=== PATIENT | female | born 1990 | race African-American/Black ===

== ENCOUNTER 2016-12-10 16:01 | Emergency (ER) | payer BC, MEDICAID ==
[~2016-12-10] VITALS: Ht 160 cm; Wt 46.7 kg
[2016-12-10] MEDS ORDERED: ACETAMINOPHEN 500 MG TABLET PO ONE (17:00)
--- NOTE | 2016-12-10 17:11 | PHYS DOC ---
Past Medical History Past Medical History: No Pertinent History Past Surgical History: Appendectomy Additional Past Surgical Histo: cyst removed under L arm Alcohol Use: None Drug Use: None Adult General Chief Complaint Chief Complaint: ABDOMINAL PAIN IN HPI HPI Patient is a 26 year old female who presents with pelvic pain. Patient reports that she has been having a sharp pain for the past three weeks. No clear inciting or mitigating factors. She has not taken anything for pain at home. Only other symptom in nausea. No vaginal bleeding or discharge, no dysuria. Patient reports that she took a test at home on Tue that was positive. LMP 10/03/16. She is now with one prior miscarriage. She is taking a vitamin. Review of Systems Review of Systems Constitutional: Denies fever or chills Eyes: Denies change in visual acuity or eye pain HENT: Denies nasal congestion or sore throat Respiratory: Denies cough or shortness of breath Cardiovascular: Denies chest pain GI: Pelvic pain, nausea. Denies vomiting, bloody stools or diarrhea : Denies vaginal bleeding/discharge, dysuria or hematuria Musculoskeletal: Denies back pain or joint pain Integument: Denies rash or skin lesions Neurologic: Denies headache, focal weakness or sensory changes Current Medications Current Medications Current Medications Medications (Trade) Dose Ordered Sig/Flynn Start Time Stop Time Status Last Admin Dose Admin Acetaminophen 1000 mg 1,000 mg 1X ONCE 12/10/16 17:00 12/10/16 17:01 DC 12/10/16 19:30 1,000 MG Ceftriaxone Sodium (Rocephin 1gm Ivpb For Omni) 50 ml @ 100 mls/hr 1X ONCE 12/10/16 19:30 12/10/16 19:59 DC 12/10/16 19:30 100 MLS/HR Allergies Allergies Allergies Coded Allergies Type Severity Reaction Last Updated Verified shellfish derived Allergy Severe throat itching and/soa/vomiting 06/03/15 Yes Physical Exam Physical Exam Constitutional: Well developed, well nourished, no acute distress, non-toxic appearance HENT: Normocephalic, atraumatic, bilateral external ears normal Eyes: EOMI, conjunctiva normal, no discharge Neck: Normal range of motion, no stridor Cardiovascular: Heart rate normal, regular rhythm, no murmur Lungs & Thorax: Bilateral breath sounds clear to auscultation Abdomen: Bowel sounds normal, soft, non-distended, no TTP Pelvic: No blood in vault, no significant discharge, no CMT, no adnexal tenderness Skin: Warm, dry, no erythema, no rash Extremities: No obvious deformity, no edema Neurologic: Alert and oriented X 3, no gross deficits noted Current Patient Data Vital Signs Vital Signs Date Time Temp Pulse Resp B/P Pulse Ox O2 Delivery O2 Flow Rate FiO2 12/10/16 20:53 78 20 98/65 98 Room Air 12/10/16 16:06 98.7 98.7 Lab Values Laboratory Tests Test 12/10/16 16:25 12/10/16 19:15 Urine Collection Type Unknown Urine Color Yellow Urine Clarity Clear Urine pH 6.5 Urine Specific [place] 1.025 Urine Protein Negativemg/dL (NEG-TRACE) Urine Glucose (UA) Negativemg/dL (NEG) Urine Ketones (Stick) >=80mg/dL (NEG) Urine Blood Moderate (NEG) Urine Nitrite Negative (NEG) Urine Bilirubin Negative (NEG) Urine Urobilinogen Dipstick 0.2mg/dL (0.2 mg/dL) Urine Leukocyte Esterase Small (NEG) Urine RBC 0/HPF (0-2) Urine WBC 11-20/HPF (0-4) Urine Squamous Epithelial Cells Mod/LPF Urine Bacteria Moderate/HPF (0-FEW) Urine Mucus Slight/LPF White Blood Count 4.3x10^3/uL (4.0-11.0) Red Blood Count 4.55x10^6/uL (3.50-5.40) Hemoglobin 13.4g/dL (12.0-15.5) Hematocrit 40.5% (36.0-47.0) Mean Corpuscular Volume 89fL (79-100) Mean Corpuscular Hemoglobin 30pg (25-35) Mean Corpuscular Hemoglobin Concent 33g/dL (31-37) Red Cell Distribution Width 15.0% (11.5-14.5) H Platelet Count 217x10^3/uL (140-400) Neutrophils (%) (Auto) 61% (31-73) Lymphocytes (%) (Auto) 25% (24-48) Monocytes (%) (Auto) 11% (0-9) H Eosinophils (%) (Auto) 2% (0-3) Basophils (%) (Auto) 1% (0-3) Neutrophils # (Auto) 2.6x10^3uL (1.8-7.7) Lymphocytes # (Auto) 1.1x10^3/uL (1.0-4.8) Monocytes # (Auto) 0.5x10^3/uL (0.0-1.1) Eosinophils # (Auto) 0.1x10^3/uL (0.0-0.7) Basophils # (Auto) 0.1x10^3/uL (0.0-0.2) Maternal Serum HCG Beta Subunit 2144mIU/mL (0-6) H Sodium Level 139mmol/L (136-145) Potassium Level 3.7mmol/L (3.5-5.1) Chloride Level 105mmol/L (98-107) Carbon Dioxide Level 27mmol/L (21-32) Anion Gap 7 (6-14) Blood Urea Nitrogen 17mg/dL (7-20) Creatinine 0.6mg/dL (0.6-1.0) Estimated GFR (Cockcroft-Gault) 145.1 BUN/Creatinine Ratio 28 (6-20) H Glucose Level 77mg/dL (70-99) Calcium Level 9.3mg/dL (8.5-10.1) Total Bilirubin 0.4mg/dL (0.2-1.0) Aspartate Amino Transferase (AST) 12U/L (15-37) L Alanine Aminotransferase (ALT) 15U/L (14-59) Alkaline Phosphatase 46U/L (46-116) Total Protein 7.5g/dL (6.4-8.2) Albumin 3.6g/dL (3.4-5.0) Albumin/Globulin Ratio 0.9 (1.0-1.7) L Laboratory Tests 12/10/16 19:15 Laboratory Tests 12/10/16 19:15 Microbiology 12/10/16 Wet Prep - Final, Complete Microbiology 12/10/16 Wet Prep - Final, Complete EKG EKG [] Radiology/Procedures Radiology/Procedures Pelvic US: IMPRESSION No evidence . An early or a blighted ovum or miscarriage are possible. Recommend correlation with serial quantitative beta HCG. If the continues a short-term followup ultrasound must be performed in order to document an intrauterine and thereby exclude possible ectopic . Course & Med Decision Making Course & Med Decision Making Pertinent Labs and Imaging studies reviewed. (See chart for details) Patient is 26-year-old female who presents with pelvic pain and setting of . Will check UA, serum hCG, pelvic ultrasound, pelvic swabs. Dose of Tylenol ordered for pain control. Blood work unremarkable. UA indicative of UTI , dose of Rocephin ordered. Ultrasound results as above. Given that beta hCG is greater than 2100, I called and spoke with Dr. Menjivar (communications supervisor ObGyn); likely early , ok to send home with outpatient follow up. Discussed results with patient, who is feeling better at this time. Discussed the need to follow- up with her [employer] early next week, or return to the Emergency Department if her symptoms get worse. Will discharge with prescription for Macrobid. Dragon Disclaimer Dragon Disclaimer This electronic medical record was generated, in whole or in part, using a voice recognition dictation system. Departure Departure Impression: Primary Impression: Abdominal pain affecting Additional Impression: UTI (urinary tract infection) Disposition: 01 HOME, SELF-CARE Condition: STABLE Referrals: UNKNOWN PCP NAME (PCP) Patient Instructions: Abdominal Pain During , Urinary Tract Infection Additional Instructions: Thank you for allowing us to provide care today in the Emergency Department. Take the provided medication as directed. Your ultrasound did not show a at this time. It is likely that you have an early that is too small to show up at this time. It is important for you to follow up to be re-evaluated in the near future. Schedule a follow up appointment with your ObGyn as soon as possible. Return promptly to the Emergency Department if you develop any new or concerning symptoms, such as worsening pain or vaginal bleeding. Scripts Nitrofurantoin Monohyd/M-Cryst (Macrobid 100 Mg Capsule)100 Mg Capsule1 Cap PO BID #14 CAP Prov:KRISTY MIN MD 12/10/16 Problem Qualifiers KRISTY MIN MD Dec 10, 2016 17:11
[2016-12-10 17:12] LABS: BILIRUBIN,URINE NEGATIVE (NEG); GLUCOSE,URINE NEGATIVE (NEG); NITRITE,URINE NEGATIVE (NEG); PH,URINE 6.5; PROTEIN,URINE NEGATIVE (NEG-TRACE); UROBILINOGEN,URINE 0.2 mg/dL (0.2 mg/dL)
[2016-12-10 17:22] LABS: RBC,URINE 0 /HPF (0-2)
[2016-12-10 17:23] LABS: BACTERIA,URINE MODERATE /HPF (0-FEW); SQUAMOUS EPITHELIAL CELL,UR MOD /LPF
--- NOTE | 2016-12-10 18:25 | RAD ---
PROCEDURE Ob ultrasound less than 14 weeks HISTORY Pelvic pain TECHNIQUE Sonographic examination of the was performed by transabdominal technique and multiple static images were obtained FINDINGS The left ovary appears normal with normal blood flow measures 3.2 x 2.4 by 2.6 centimeters. The right ovary appears normal with normal blood flow and measures 3.2 x 2.1 x 3.0 centimeters. The maternal cervix measures 2.5 centimeters in length and contains a sliver of fluid. The uterus measures 8.4 x 3.7 by 5.2 centimeters. The endometrium of the uterus appears normal and measures 7 millimeters in thickness. IMPRESSION No evidence . An early or a blighted ovum or miscarriage are possible. Recommend correlation with serial quantitative beta HCG. If the continues a short-term followup ultrasound must be performed in order to document an intrauterine and thereby exclude possible ectopic . Electronically signed by: Caleb العراقي MD (Dec 10, 2016 18:24:24)
[2016-12-10] MEDS ORDERED: CEFTRIAXONE 1GM IVPB FOR OMNI 50 ML IV ONE (19:30)
[2016-12-10 19:36] LABS: BASO # 0.1 x10^3/uL (0.0-0.2); BASO % 1 % (0-3); EOS % 2 % (0-3); HEMATOCRIT 40.5 % (36.0-47.0); HEMOGLOBIN 13.4 g/dL (12.0-15.5); LYMPH # 1.1 x10^3/uL (1.0-4.8); LYMPH % 25 % (24-48); MEAN CORPUSCULAR HEMOGLOBIN 30 pg (25-35); MEAN CORPUSCULAR HGB CONC 33 g/dL (31-37); MEAN CORPUSCULAR VOLUME 89 fL (79-100); MONO % 11 % (0-9); NEUT % 61 % (31-73); PLATELET COUNT 217 x10^3/uL (140-400); RED BLOOD COUNT 4.55 x10^6/uL (3.50-5.40); WHITE BLOOD COUNT 4.3 x10^3/uL (4.0-11.0)
[2016-12-10 19:47] LABS: CALCIUM 9.3 mg/dL (8.5-10.1); CREATININE 0.6 mg/dL (0.6-1.0); GFR 145.1; POTASSIUM 3.7 mmol/L (3.5-5.1)
[2016-12-10 19:53] LABS: ALBUMIN 3.6 g/dL (3.4-5.0); ALBUMIN/GLOBULIN RATIO 0.9 (1.0-1.7); TOTAL BILIRUBIN 0.4 mg/dL (0.2-1.0); TOTAL PROTEIN 7.5 g/dL (6.4-8.2)
[2016-12-10] MEDS ORDERED: NITR100C62 PO (20:46)
[2016-12-10 20:53] VITALS: BP 98/65
--- NOTE | 2016-12-13 17:14 | VNOTE ---
CALL BACK NOTE CALL BACK Microbiology 12/10/16 Wet Prep - Final, Complete 12/10/16 Urine Culture - Final, Complete 12/10/16 Urine Culture Result 1 (SHAHRIAR) - Final, Complete 12/10/16 Antimicrobic Susceptibility - Final, Complete Urine culture reports back. Patient was positive for proteus mirabilis she was placed on macrobid. Sensitivity results shows that this infection is resistant against Macrobid. Attempted to contact patient at [phone] with the number being disconnected. Patient will be provided with a certified letter in regards to urine culture. JALEN CARDOZA NP Dec 13, 2016 17:14
== END 2016-12-10 20:54 | disposition home or self-care (01) ==
LOC: ER 16:01
DX: R10.9 Unspecified abdominal pain (principal); N39.0 Urinary tract infection, site not specified; Z90.49 Acquired absence of other specified parts of digestive tract; Z91.013 Allergy to seafood
CPT/HCPCS: 76801; 80053; 81001; 84702; 85027; 87086; 96365; 99285; J0690; Q0111; 36415; 81025; 87491; 87591

== ENCOUNTER 2016-12-15 21:32 | Emergency (ER) | payer BC ==
[~2016-12-15] VITALS: Ht 182.9 cm; Wt 46.7 kg
[~2016-12-15 21:32] MED LIST: NITR100C62 PO
[2016-12-15 22:07] VITALS: BP 127/66
[2016-12-15] MEDS ORDERED: ACETAMINOPHEN 500 MG TABLET PO ONE (22:30)
[2016-12-15 22:40] LABS: OBC FLU VALID
--- NOTE | 2016-12-15 22:45 | PHYS DOC ---
Past Medical History Past Medical History: No Pertinent History Past Surgical History: Appendectomy Additional Past Surgical Histo: cyst removed under L arm Alcohol Use: None Drug Use: None Adult General Chief Complaint Chief Complaint: FEVER HPI HPI 26-year-old otherwise healthy female presents with a 2 day history of upper respiratory type symptoms and low-grade fever. She denies any chills or sweats. She has had a little bit of a dry cough. She complains of body aches as well. Over the last 2 days she's had a little bit of a decreased appetite. [] Review of Systems Review of Systems Constitutional: Denies fever or chills [] Eyes: Denies change in visual acuity, redness, or eye pain [] HENT: Denies nasal congestion or sore throat [] Respiratory: Denies cough or shortness of breath [] Cardiovascular: No additional information not addressed in HPI [] GI: Denies abdominal pain, nausea, vomiting, bloody stools or diarrhea [] : Denies dysuria or hematuria [] Musculoskeletal: Denies back pain or joint pain [] Integument: Denies rash or skin lesions [] Neurologic: Denies headache, focal weakness or sensory changes [] Endocrine: Denies polyuria or polydipsia [] Current Medications Current Medications Current Medications Medications (Trade) Dose Ordered Sig/Flynn Start Time Stop Time Status Last Admin Dose Admin Acetaminophen (Tylenol) 1,000 mg 1X ONCE 12/15/16 22:30 12/15/16 22:31 DC 12/15/16 22:21 1,000 MG Allergies Allergies Allergies Coded Allergies Type Severity Reaction Last Updated Verified shellfish derived Allergy Severe throat itching and/soa/vomiting 06/03/15 Yes Physical Exam Physical Exam Constitutional: Well developed, well nourished, no acute distress, non-toxic appearance. [] HENT: Normocephalic, atraumatic, bilateral external ears normal, oropharynx moist, no oral exudates, nasal congestion with clear rhinorrhea. [] Eyes: PERRLA, EOMI, mildly injected conjunctiva, no discharge. [] Neck: Normal range of motion, no tenderness, supple, no stridor. [] Cardiovascular:Heart rate regular rhythm, no murmur [] Lungs & Thorax: Bilateral breath sounds clear to auscultation [] Abdomen: Bowel sounds normal, soft, no tenderness, no masses, no pulsatile masses. [] Skin: Warm, dry, no erythema, no rash. [] Back: No tenderness, no CVA tenderness. [] Extremities: No tenderness, no cyanosis, no clubbing, ROM intact, no edema. [] Neurologic: Alert and oriented X 3, normal motor function, normal sensory function, no focal deficits noted. [] Psychologic: Affect normal, judgement normal, mood normal. [] Current Patient Data Vital Signs Vital Signs Date Time Temp Pulse Resp B/P Pulse Ox O2 Delivery O2 Flow Rate FiO2 12/15/16 22:07 99.1 108 18 127/66 100 Room Air 99.1 Lab Values Laboratory Tests Test 12/15/16 22:15 Influenza Type A Antigen Negative (NEGATIVE) Influenza Type B Antigen Negative (NEGATIVE) EKG EKG [] Radiology/Procedures Radiology/Procedures [] Course & Med Decision Making Course & Med Decision Making Pertinent Labs and Imaging studies reviewed. (See chart for details) [] Dragon Disclaimer Dragon Disclaimer This electronic medical record was generated, in whole or in part, using a voice recognition dictation system. Departure Departure Impression: Primary Impression: Upper respiratory infection Disposition: HOME, SELF-CARE Condition: STABLE Referrals: NO PCP (PCP) Patient Instructions: Viral Syndrome Additional Instructions: Drink plenty of fluids over the course of the next 2-3 days. Tylenol or Motrin for fever and body aches. Return immediately to the emergency department with any new or concerning symptoms Problem Qualifiers Primary Impression: Upper respiratory infection URI type: unspecified viral URI Qualified Code: J06.9 - Acute upper respiratory infection, unspecified LUANNE WARD DO Dec 15, 2016 22:45
== END 2016-12-15 22:49 | disposition home or self-care (01) ==
LOC: ER 21:32
DX: J06.9 Acute upper respiratory infection, unspecified (principal); Z91.013 Allergy to seafood
CPT/HCPCS: 87804; 99284

== ENCOUNTER 2016-12-17 05:47 | Emergency (ER) | payer BC ==
[~2016-12-17] VITALS: Ht 160 cm; Wt 47.6 kg
--- NOTE | 2016-12-17 06:38 | ED.ADGEN ---
Past Medical History Past Medical History: No Pertinent History Past Surgical History: Appendectomy Additional Past Surgical Histo: cyst removed under L arm Alcohol Use: None Drug Use: None Adult General Chief Complaint Chief Complaint: Congestion HPI HPI Patient is a 26 year old woman, , history of 1 previous miscarriage, 11 weeks by dates, who presents to the emergency department with a complaint of sore throat, rhinorrhea, body aches, headache, subjective fevers and chills, and abdominal pain. Patient states that she was seen on Tuesday and was told that she had upper respiratory infection. She has not yet been seen by [facility] for this , she is taking vitamins. She took one dose of Tylenol left-sided 10:30. Has not taken any other medications since that time. Denies any other medical history medical problems. States she is coughing , and "vomiting up" mucus. Denies any other emesis. Denies any urinary complaints. Denies any discharge or drainage from the vagina aside from her typical clear vaginal discharge. Denies any possibility of STI exposures other concerning findings. No injuries to the abdomen. No back pain. No bleeding or gush of fluid. Patient states she had an ultrasound done on Tuesday that did not show a fetus in the uterus. Review of Systems Review of Systems Constitutional: Denies fever or chills. [] Eyes: Denies change in visual acuity. [] HENT: Nasal congestion, sore throat, cough productive of mucus. Respiratory: Cough, no shortness of breath. Cardiovascular: Denies chest pain or edema. [] GI: Lower quadrant abdominal pain, no vomiting, bloody stools or diarrhea. : Denies dysuria. [] Musculoskeletal: Denies back pain or joint pain. [] Integument: Denies rash. [] Neurologic: Denies headache, focal weakness or sensory changes. [] Endocrine: Denies polyuria or polydipsia. [] Lymphatic: Denies swollen glands. [] Psychiatric: Denies depression or anxiety. [] Current Medications Current Medications Current Medications Medications (Trade) Dose Ordered Sig/Flynn Start Time Stop Time Status Last Admin Dose Admin Acetaminophen 1000 mg 1,000 mg 1X ONCE 12/17/16 07:00 12/17/16 07:01 DC 12/17/16 06:34 1,000 MG Sodium Chloride (Iv Sodium Chloride 0.9% 1000ml Bag) 1,000 ml @ 1,000 mls/hr 1X ONCE 12/17/16 07:00 12/17/16 07:59 DC 12/17/16 06:35 1,000 MLS/HR Allergies Allergies Allergies Coded Allergies Type Severity Reaction Last Updated Verified shellfish derived Allergy Severe throat itching and/soa/vomiting 06/03/15 Yes Physical Exam Physical Exam Constitutional: Well developed, well nourished, no acute distress, non-toxic appearance. [] HENT: Normocephalic, atraumatic, bilateral external ears normal, oropharynx moist, no oral exudates, nose normal. Turbinates swelling bilaterally, with clear rhinorrhea, mild injection of the oropharynx. Eyes: PERRLA, EOMI, conjunctiva normal, no discharge. [] Neck: Normal range of motion, no tenderness, supple, no stridor. [] Cardiovascular:Heart rate regular rhythm, no murmur, S1, S2, rubs or gallops. [] Lungs & Thorax: Bilateral breath sounds clear to auscultation, no wheezing, rhonchi, rales. No chest tenderness or crepitus. [] Abdomen: Bowel sounds normal, soft, no tenderness, no rebound, rigidity, no guarding, no masses, no pulsatile masses. [] Skin: Warm, dry, no erythema, no rash. [] Back: No tenderness, no CVA tenderness. [] Extremities: No tenderness, no cyanosis, no clubbing, ROM intact, no edema. [] Neurologic: Alert and oriented X 3, normal motor function, normal sensory function, no focal deficits noted. [] Psychologic: Affect normal, judgement normal, mood normal. [] Current Patient Data Vital Signs Vital Signs Date Time Temp Pulse Resp B/P Pulse Ox O2 Delivery O2 Flow Rate FiO2 12/17/16 09:20 94 16 100/61 98 Room Air 12/17/16 06:01 98.2 98.2 Lab Values Laboratory Tests Test 12/17/16 06:09 12/17/16 06:13 12/17/16 06:39 Urine Collection Type Void Urine Color Yellow Urine Clarity Clear Urine pH 6.5 Urine Specific [place] 1.025 Urine Protein Negativemg/dL (NEG-TRACE) Urine Glucose (UA) Negativemg/dL (NEG) Urine Ketones (Stick) Negativemg/dL (NEG) Urine Blood Trace (NEG) Urine Nitrite Negative (NEG) Urine Bilirubin Negative (NEG) Urine Urobilinogen Dipstick 1.0mg/dL (0.2 mg/dL) Urine Leukocyte Esterase Small (NEG) Urine RBC 6-10/HPF (0-2) Urine WBC 1-4/HPF (0-4) Urine Squamous Epithelial Cells Mod/LPF Urine Bacteria 0/HPF (0-FEW) Urine Mucus Marked/LPF POC Urine HCG, Qualitative Hcg positive (Negative) Maternal Serum HCG Beta Subunit 43859lUA/mL (0-6) H EKG EKG ECG: Rhythm strip: Heart rate 70 bpm, sinus rhythm, no ectopy. As interpreted by me. [] Radiology/Procedures Radiology/Procedures [] [facility] [address] [place], [place] [id number] IMAGING REPORT Signed PATIENT: CASEY MADRID V ACCOUNT: [id number] : 1990 LOCATION: ER AGE: 26 SEX: F EXAM STATUS: REG ER ORD. PHYSICIAN: KRISTY MIN MD REASON: pelvic pain in early PROCEDURE: OB < 14 WKS PROCEDURE Ob ultrasound less than 14 weeks HISTORY Pelvic pain TECHNIQUE Sonographic examination of the was performed by transabdominal technique and multiple static images were obtained FINDINGS The left ovary appears normal with normal blood flow measures 3.2 x 2.4 by 2.6 centimeters. The right ovary appears normal with normal blood flow and measures 3.2 x 2.1 x 3.0 centimeters. The maternal cervix measures 2.5 centimeters in length and contains a sliver of fluid. The uterus measures 8.4 x 3.7 by 5.2 centimeters. The endometrium of the uterus appears normal and measures 7 millimeters in thickness. IMPRESSION No evidence . An early or a blighted ovum or miscarriage are possible. Recommend correlation with serial quantitative beta HCG. If the continues a short-term followup ultrasound must be performed in order to document an intrauterine and thereby exclude possible ectopic . Electronically signed by: Coty De La Garza MD (Dec 10, 2016 18:24:24) DICTATED and SIGNED BY: COTY DE LA GARZA III, MD DATE: 12/10/16 [id number] CC: UNKNOWN PCP NAME; KRISTY MIN MD ~ Impressions: [facility] [address] [place], [place] [id number] IMAGING REPORT Signed PATIENT: CASEY MADRID V ACCOUNT: [id number] : 1990 LOCATION: ER AGE: 26 SEX: F EXAM STATUS: REG ER ORD. PHYSICIAN: PEGGY THOMPSON DO REASON: preg +/inconclusive US 12/10 PROCEDURE: OB < 14 WKS Exam performed: OB sonogram first trimester. History: Pelvic pain. Date of service: 12/17/16. Comparison: None available Technique: Transabdominal and transvaginal. Findings: Uterus measures 7.9 x 5.9 cm. There is a single into uterine gestational sac. No pole or yolk sac is identified. The mean sac diameter measures 1.3 cm corresponding to 6 weeks and 1 day with a sonographic EDC of 08/11/17. There is a small 1.4 x 1.2 x 1.7 cm subchorionic hemorrhage. Both ovaries are normal demonstrating symmetric vascularity. The right ovary measures 3.8 x 1.9 x 2.9 cm the left ovary measures 3.4 x 2.3 x 3.0 cm. There is small amount of free fluid in the posterior cul-de-sac. Impression: 1. Single into uterine gestational sac of maturity 16 weeks and 1 day without pole and yolk sac. Typically by this time a live pole should BE visualized. The findings may be related to failure. Correlate with serial quantitative beta-hCG level and short-term interval follow-up OB ultrasound in approximately 2 weeks may be of obtained to ensure stability. 2. Small subchorionic hemorrhage. DICTATED and SIGNED BY: EREN ROMANO MD DATE: 12/17/16 [id number] CC: PEGGY THOMPSON DO; NO PCP ~ Course & Med Decision Making Course & Med Decision Making Pertinent Labs and Imaging studies reviewed. (See chart for details) Patient's examination is consistent with a viral upper restrained infection. No evidence of bacterial infection, saturations 100% on room air, with clear lungs and organs of lower airspace disease. I did discuss the length of time of symptoms with a viral infection with the patient, use of Tylenol, rest, fluids, other concerning symptoms that would prompt additional evaluation. Patient states that she understands the symptoms. However based on her history of not visualized intrauterine , with abdominal pain, and at beta quantitative assay of 2,144, repeat ultrasound and beta Quant of assay are ordered in the ED as the patient has not yet established follow-up with [facility]. Urinalysis is negative for bacteria, ultrasound reveals a gestational sac, measuring at 6 weeks 1 days, but no yolk sac, pole or other developing features identified. Beta quantitative assay is 23,731. Findings as above discussed with Dr. Altman of [facility], based on findings as above, this may be early normal , however, he requests the patient follow up with him in the office on Tuesday for additional evaluation and follow-up. Patient instructed to follow-up in the office on Tuesday at 9 AM, given Dr. Altman's contact information, instructed that she does not need to call, as this appointment as early been scheduled for her. She is instructed to continue vitamins, and to use acetaminophen as directed on the packaging as needed for symptoms. Limitations of medications based on her status also discussed. Patient voiced understanding and agreement, discharged home in stable condition with plan as above. Dragon Disclaimer Dragon Disclaimer This electronic medical record was generated, in whole or in part, using a voice recognition dictation system. Departure Impression: Primary Impression: Upper respiratory infection Additional Impression: Abdominal pain affecting Disposition: HOME, SELF-CARE Condition: IMPROVED Problem Qualifiers PEGGY THOMPSON DO Dec 17, 2016 06:38
[2016-12-17 06:42] LABS: BILIRUBIN,URINE NEGATIVE (NEG); GLUCOSE,URINE NEGATIVE (NEG); NITRITE,URINE NEGATIVE (NEG); PH,URINE 6.5; PROTEIN,URINE NEGATIVE (NEG-TRACE)
[2016-12-17 06:59] LABS: BACTERIA,URINE 0 /HPF (0-FEW)
[2016-12-17 07:00] LABS: SQUAMOUS EPITHELIAL CELL,UR MOD /LPF
[2016-12-17] MEDS ORDERED: IV NORMAL SALINE 1000ML BAG 1,000 ML IV ONE (07:00)
[2016-12-17] MEDS ORDERED: ACETAMINOPHEN 500 MG TABLET PO ONE (07:00)
--- NOTE | 2016-12-17 08:22 | RAD ---
Exam performed: OB sonogram first trimester. History: Pelvic pain. Date of service: 12/17/16. Comparison: None available Technique: Transabdominal and transvaginal. Findings: Uterus measures 7.9 x 5.9 cm. There is a single into uterine gestational sac. No pole or yolk sac is identified. The mean sac diameter measures 1.3 cm corresponding to 6 weeks and 1 day with a sonographic EDC of 08/11/17. There is a small 1.4 x 1.2 x 1.7 cm subchorionic hemorrhage. Both ovaries are normal demonstrating symmetric vascularity. The right ovary measures 3.8 x 1.9 x 2.9 cm the left ovary measures 3.4 x 2.3 x 3.0 cm. There is small amount of free fluid in the posterior cul-de-sac. Impression: 1. Single into uterine gestational sac of maturity 16 weeks and 1 day without pole and yolk sac. Typically by this time a live pole should BE visualized. The findings may be related to failure. Correlate with serial quantitative beta-hCG level and short-term interval follow-up OB ultrasound in approximately 2 weeks may be of obtained to ensure stability. 2. Small subchorionic hemorrhage.
[2016-12-17 09:20] VITALS: BP 100/61
== END 2016-12-17 09:20 | disposition home or self-care (01) ==
LOC: ER 05:47
DX: O99.512 Diseases of the respiratory system complicating pregnancy, second trimester (principal); J06.9 Acute upper respiratory infection, unspecified; R51 Headache; O26.892 Other specified pregnancy related conditions, second trimester; R10.30 Lower abdominal pain, unspecified; Z91.013 Allergy to seafood; Z90.49 Acquired absence of other specified parts of digestive tract; Z3A.16 16 weeks gestation of pregnancy
CPT/HCPCS: 36415; 76801; 81001; 81025; 84702; 87086; 96360; 99285; J7030

== ENCOUNTER 2017-02-23 20:37 | Emergency (ER) | payer SELFPAY ==
[~2017-02-23] VITALS: Ht 160 cm; Wt 46.7 kg
[2017-02-23 21:11] LABS: BASO % 1 % (0-3); EOS % 3 % (0-3); HEMATOCRIT 36.3 % (36.0-47.0); HEMOGLOBIN 12.6 g/dL (12.0-15.5); LYMPH % 17 % (24-48); MEAN CORPUSCULAR HEMOGLOBIN 31 pg (25-35); MEAN CORPUSCULAR HGB CONC 35 g/dL (31-37); MEAN CORPUSCULAR VOLUME 89 fL (79-100); MONO % 5 % (0-9); NEUT % 74 % (31-73); PLATELET COUNT 252 x10^3/uL (140-400); RED BLOOD COUNT 4.08 x10^6/uL (3.50-5.40); RED CELL DISTRIBUTION WIDTH 14.4 % (11.5-14.5); WHITE BLOOD COUNT 6.1 x10^3/uL (4.0-11.0)
[2017-02-23 21:12] LABS: BILIRUBIN,URINE NEGATIVE (NEG); GLUCOSE,URINE NEGATIVE (NEG); NITRITE,URINE NEGATIVE (NEG); PH,URINE 7.5; PROTEIN,URINE NEGATIVE (NEG-TRACE)
[2017-02-23 21:17] LABS: BACTERIA,URINE MODERATE /HPF (0-FEW); RBC,URINE 0 /HPF (0-2); SQUAMOUS EPITHELIAL CELL,UR MANY /LPF
[2017-02-23 21:20] LABS: CALCIUM 8.9 mg/dL (8.5-10.1); CREATININE 0.5 mg/dL (0.6-1.0); GFR 179.1; POTASSIUM 3.1 mmol/L (3.5-5.1)
[2017-02-23 21:26] LABS: ALBUMIN 2.9 g/dL (3.4-5.0); DIRECT BILIRUBIN 0.1 mg/dL (0.0-0.2); TOTAL BILIRUBIN 0.3 mg/dL (0.2-1.0); TOTAL PROTEIN 7.4 g/dL (6.4-8.2)
[2017-02-23 21:50] LABS: % EOS 1 % (0-5); PLT ESTIMATE ADEQUATE (ADEQUATE)
[2017-02-23] MEDS ORDERED: CEPH-263 PO (22:15)
[2017-02-23] MEDS ORDERED: POTASSIUM CHLO10 MEQ PO (22:15)
--- NOTE | 2017-02-23 23:06 | PHYS DOC ---
Past Medical History Past Medical History: No Pertinent History Past Surgical History: Appendectomy Additional Past Surgical Histo: cyst removed under L arm Alcohol Use: None Drug Use: None Adult General Chief Complaint Chief Complaint: VAGINAL BLEEDING HPI HPI 26 yo F who presents the emergency department today with abdominal pain and mild vaginal bleeding. She is 14 weeks by last menstrual period. She reports mild cramping in the lower abdomen that is mild nonradiating. No specific timing present. Without alleviating factors. Review of systems is negative for chest pain shortness of breath. Negative for fevers or chills. All other review of systems is negative unless otherwise noted in history of present illness. Review of Systems Review of Systems SEE ABOVE. Allergies Allergies Allergies Coded Allergies Type Severity Reaction Last Updated Verified shellfish derived Allergy Severe throat itching and/soa/vomiting 06/03/15 Yes Physical Exam Physical Exam Constitutional: Well developed, well nourished, no acute distress, non-toxic appearance. HENT: Normocephalic, atraumatic, bilateral external ears normal, oropharynx moist, no oral exudates, nose normal. [] Eyes: PERRLA, EOMI, conjunctiva normal, no discharge. [] Neck: Normal range of motion, no tenderness, supple, no stridor. Cardiovascular:Heart rate regular rhythm, no murmur [] Lungs & Thorax: Bilateral breath sounds clear to auscultation Abdomen: Soft nontender gravid uterus with fundus below the umbilicus. Negative new parties point. Negative Elizondo sign. Skin: Warm, dry, no erythema, no rash. Back: No tenderness, no CVA tenderness. Extremities: No tenderness, no cyanosis, no clubbing, ROM intact, no edema. [] Neurologic: Alert and oriented X 3, normal motor function, normal sensory function, no focal deficits noted. [] Psychologic: Affect normal, judgement normal, mood normal. [] Current Patient Data Vital Signs Vital Signs Date Time Temp Pulse Resp B/P (MAP) Pulse Ox O2 Delivery O2 Flow Rate FiO2 02/23/17 23:51 80 15 103/59 (74) 99 Room Air 02/23/17 20:50 98.5 98.5 Lab Values Laboratory Tests Test 02/23/17 20:50 White Blood Count 6.1 x10^3/uL (4.0-11.0) Red Blood Count 4.08 x10^6/uL (3.50-5.40) Hemoglobin 12.6 g/dL (12.0-15.5) Hematocrit 36.3 % (36.0-47.0) Mean Corpuscular Volume 89 fL (79-100) Mean Corpuscular Hemoglobin 31 pg (25-35) Mean Corpuscular Hemoglobin Concent 35 g/dL (31-37) Red Cell Distribution Width 14.4 % (11.5-14.5) Platelet Count 252 x10^3/uL (140-400) Neutrophils (%) (Auto) 74 % (31-73) H Lymphocytes (%) (Auto) 17 % (24-48) L Monocytes (%) (Auto) 5 % (0-9) Eosinophils (%) (Auto) 3 % (0-3) Basophils (%) (Auto) 1 % (0-3) Neutrophils # (Auto) 4.5 x10^3uL (1.8-7.7) Lymphocytes # (Auto) 1.0 x10^3/uL (1.0-4.8) Monocytes # (Auto) 0.3 x10^3/uL (0.0-1.1) Eosinophils # (Auto) 0.2 x10^3/uL (0.0-0.7) Basophils # (Auto) 0.0 x10^3/uL (0.0-0.2) Segmented Neutrophils % 65 % (35-66) Band Neutrophils % 10 % (0-9) H Lymphocytes % 18 % (24-48) L Monocytes % 6 % (0-10) Eosinophils % 1 % (0-5) Platelet Estimate Adequate (ADEQUATE) Urine Collection Type Unknown Urine Color Yellow Urine Clarity Cloudy Urine pH 7.5 Urine Specific [place] 1.025 Urine Protein Negative mg/dL (NEG-TRACE) Urine Glucose (UA) Negative mg/dL (NEG) Urine Ketones (Stick) Negative mg/dL (NEG) Urine Blood Negative (NEG) Urine Nitrite Negative (NEG) Urine Bilirubin Negative (NEG) Urine Urobilinogen Dipstick 1.0 mg/dL (0.2 mg/dL) Urine Leukocyte Esterase Trace (NEG) Urine RBC 0 /HPF (0-2) Urine WBC 1-4 /HPF (0-4) Urine Squamous Epithelial Cells Many /LPF Urine Bacteria Moderate /HPF (0-FEW) Urine Mucus Mod /LPF Maternal Serum HCG Beta Subunit 95947 mIU/mL (0-6) H Sodium Level 136 mmol/L (136-145) Potassium Level 3.1 mmol/L (3.5-5.1) L Chloride Level 101 mmol/L (98-107) Carbon Dioxide Level 25 mmol/L (21-32) Anion Gap 10 (6-14) Blood Urea Nitrogen 10 mg/dL (7-20) Creatinine 0.5 mg/dL (0.6-1.0) L Estimated GFR (Cockcroft-Gault) 179.1 Glucose Level 106 mg/dL (70-99) H Calcium Level 8.9 mg/dL (8.5-10.1) Total Bilirubin 0.3 mg/dL (0.2-1.0) Direct Bilirubin 0.1 mg/dL (0.0-0.2) Aspartate Amino Transferase (AST) 17 U/L (15-37) Alanine Aminotransferase (ALT) 21 U/L (14-59) Alkaline Phosphatase 52 U/L (46-116) Total Protein 7.4 g/dL (6.4-8.2) Albumin 2.9 g/dL (3.4-5.0) L Lipase 89 U/L (73-393) Laboratory Tests 02/23/17 20:50 Laboratory Tests 02/23/17 20:50 EKG EKG [] Radiology/Procedures Radiology/Procedures [] Course & Med Decision Making Course & Med Decision Making Pertinent Labs and Imaging studies reviewed. (See chart for details) 26-year-old female presenting to the emergency department today with vaginal bleeding and abdominal pain. IV established. Blood work obtained. Afebrile. Mild tachycardia. CBC unremarkable. Urine analysis showed mild to moderate bacteriuria. K+ was mildly low. Chemistry panel otherwise unremarkable. ultrasound obtained. Rh+. US showed : Single living intrauterine estimated sonographic gestational age 15 weeks 3 days. There is a posterior placenta with marginal placenta previa. Fluid within the mid inferior endocervical canal which could be from recent bleeding, no cervical shortening or funneling evident. . I explained the findings of the US to the pt and instructed her to call her OB in the morning to follow up in 2-3 days. I provided her with a written handout of the US reading to communicate with her OB. pt was provided oral potasium and keflex for bacturia in preg (EMR was down so writted rx given) . The patient was then discharged home in stable condition to follow up with their OB over the next 2-3 days. They were to return if their symptoms worsened or if they were concerned for any reason. [id number] discharge instructions and return precautions were given. Patient's questions were answered to their satisfaction. Patient is comfortable plan. Dragon Disclaimer Dragon Disclaimer This electronic medical record was generated, in whole or in part, using a voice recognition dictation system. Departure Departure Impression: Primary Impression: Vaginal bleeding in Additional Impression: Vaginal bleeding in patient at less than 20 weeks gestation Disposition: 01 HOME, SELF-CARE Condition: STABLE Referrals: NO PCP (PCP) DOC DOVER Jr, MD Patient Instructions: Vaginal Bleeding During , Second Trimester Additional Instructions: Thank you for allowing us to participate in your care today. Followup with your OB in 2-3 days if your symptoms do not improve. If you do not have a primary care provider you can ask for a list of our primary care providers. Return to the emergency department you have any new or concerning findings. This should be evaluated by the primary care physician and any necessary consulting services for continued management within a few days after discharge. Return to emergency room if you have any new or concerning symptoms including but not limited to fever, chills, nausea, vomiting, intractable pain, any new rashes, chest pain, shortness of air, uncontrolled bleeding, difficulty breathing, and/or vision loss. Scripts Cephalexin (KEFLEX) 250 Mg Capsule 1 CAP PO QID, #28 CAP Prov: DAVID JC MD 02/23/17 Potassium Chloride (POTASSIUM CHLORIDE) 10 Meq Capsule.er 10 MEQ PO DAILY for 7 Days, #7 TAB.SR Prov: DAVID JC MD 02/23/17 Problem Qualifiers DAVID JC MD February 23, 2017 23:06
[2017-02-23 23:51] VITALS: BP 103/59
--- NOTE | 2017-02-24 09:40 | RAD ---
PROCEDURE Obstetrical ultrasound HISTORY female with pelvic pain and vaginal bleeding for 2 days TECHNIQUE Transabdominal transducer with grayscale, M-mode Doppler and color Doppler sonography COMPARISON Obstetric ultrasound December 10, 2016 FINDINGS Single living intrauterine fetus with a variable position with heart rate 133 beats per minute. Estimated sonographic gestational age 15 weeks 3 days and date of delivery August 14, 2017. Biparietal diameter 3.0 centimeters gestational age 15 weeks 3 days. Head circumference 11.3 centimeters with gestational age 15 weeks 4 days. Abdominal circumference 9.1 centimeters with gestational age 15 weeks 2 days. Femur length 1.8 centimeters with gestational age 15 weeks 1 day. Head/abdominal circumference ratio 1.24. Cervical length 3.5 centimeters, there is mild fluid within the endocervical canal inferiorly there is no significant funneling at the internal cervical os documented. Posterior placenta with a marginal previa the inferior margin abutting the internal os or just covering the os. Dedicated anatomic evaluation was not performed although several portions of the anatomy were documented. Cerebellum diameter 1.2 centimeters. Atrium diameter 5 millimeters. Four-chamber heart was documented although the outflow tracts were not. spine unremarkable on longitudinal imaging. Two umbilical arteries were documented. Maternal left ovary measures 2.9 x 1.9 x 2.9 centimeters with a 2 centimeter follicle or corpus luteum. Maternal right ovary measures 2.6 x 1.4 x 2.1 centimeters. IMPRESSION Single living intrauterine estimated sonographic gestational age 15 weeks 3 days. There is a posterior placenta with marginal placenta previa. Fluid within the mid inferior endocervical canal which could be from recent bleeding, no cervical shortening or funneling evident. Electronically signed by: Thor Workman MD (February 23, 2017 22:09:51)
== END 2017-02-24 00:30 | disposition home or self-care (01) ==
LOC: ER 20:37
DX: O46.92 Antepartum hemorrhage, unspecified, second trimester (principal); Z90.49 Acquired absence of other specified parts of digestive tract; Z91.013 Allergy to seafood; Z3A.15 15 weeks gestation of pregnancy
CPT/HCPCS: 36415; 76805; 80048; 80076; 81001; 83690; 84702; 85007; 85027; 86850; 86900; 86901; 87086; 99285-25

== ENCOUNTER 2017-03-04 10:27 | Emergency (ER) | payer SELFPAY ==
[~2017-03-04] VITALS: Ht 160 cm; Wt 49.9 kg
[~2017-03-04 10:27] MED LIST changes: +CEPH-263 PO; +POTASSIUM CHLO10 MEQ PO
[2017-03-04 10:50] LABS: BILIRUBIN,URINE NEGATIVE (NEG); GLUCOSE,URINE NEGATIVE (NEG); NITRITE,URINE NEGATIVE (NEG); PROTEIN,URINE NEGATIVE (NEG-TRACE)
[2017-03-04 10:57] LABS: BACTERIA,URINE MODERATE /HPF (0-FEW); RBC,URINE 20-40 /HPF (0-2); SQUAMOUS EPITHELIAL CELL,UR MOD /LPF
--- NOTE | 2017-03-04 11:33 | PHYS DOC ---
Past Medical History Past Medical History: No Pertinent History Past Surgical History: Appendectomy Additional Past Surgical Histo: cyst removed under L arm Alcohol Use: None Drug Use: None Adult General Chief Complaint Chief Complaint: VAGINAL BLEEDING HPI HPI Patient is a 26 year old female presents emergency department stating that she' s been having some vaginal bleeding starting today with cramping. Patient was seen here on February 23 the same and had an ultrasound completed which showed marginal placenta previa. Patient states he was also diagnosed with a urinary tract infection she was provided antibiotics. Patient states that she still continues to take the antibiotics. States that she's forgotten to take the antibiotics. Patient is a 4 para 3. Patient states that her CLIENT SERVICES ASSISTANT is at [facility]. She'll states that since she was seen on February 23 the abdominal cramping and vaginal bleeding had stopped. She'll states that she is unable to provide the amount of bleeding that she's been having from her vaginal area. She states that it has been going down her leg. Review of Systems Review of Systems Constitutional: Denies fever or chills [] Eyes: Denies change in visual acuity, redness, or eye pain [] HENT: Denies nasal congestion or sore throat [] Respiratory: Denies cough or shortness of breath [] Cardiovascular: No additional information not addressed in HPI [] GI: abdominal pain cramping, denies nausea, vomiting, bloody stools or diarrhea [] : Denies dysuria or hematuria. Vaginal bleeding Musculoskeletal: Denies back pain or joint pain [] Integument: Denies rash or skin lesions [] Neurologic: Denies headache, focal weakness or sensory changes [] Endocrine: Denies polyuria or polydipsia [] Current Medications Current Medications Current Medications Medications (Trade) Dose Ordered Sig/Flynn Start Time Stop Time Status Last Admin Dose Admin Acetaminophen (Tylenol) 1,000 mg 1X ONCE 03/04/17 11:45 03/04/17 11:46 DC 03/04/17 11:47 1,000 MG Allergies Allergies Allergies Coded Allergies Type Severity Reaction Last Updated Verified shellfish derived Allergy Severe throat itching and/soa/vomiting 03/04/17 Yes Physical Exam Physical Exam Constitutional: Well developed, well nourished, no acute distress, non-toxic appearance. [] HENT: Normocephalic, atraumatic, bilateral external ears normal, oropharynx moist, no oral exudates, nose normal. [] Eyes: PERRLA, EOMI, conjunctiva normal, no discharge. [] Neck: Normal range of motion, no tenderness, supple, no stridor. [] Cardiovascular:Heart rate regular rhythm, no murmur [] Lungs & Thorax: Bilateral breath sounds clear to auscultation [] Abdomen: Bowel sounds hypoactive, soft, generalized tenderness, no masses, no pulsatile masses. [] Skin: Warm, dry, no erythema, no rash. [] Back: No tenderness Extremities: No tenderness, no cyanosis, no clubbing, ROM intact, no edema. [] Neurologic: Alert and oriented X 3, normal motor function, normal sensory function, no focal deficits noted. [] Psychologic: Affect normal, judgement normal, mood normal. [] Current Patient Data Vital Signs Vital Signs Date Time Temp Pulse Resp B/P (MAP) Pulse Ox O2 Delivery O2 Flow Rate FiO2 03/04/17 10:53 98.8 83 16 108/56 (73) 99 Room Air 98.8 Lab Values Laboratory Tests Test 03/04/17 10:43 Urine Collection Type Void Urine Color Yellow Urine Clarity Clear Urine pH 7.0 Urine Specific [place] 1.025 Urine Protein Negative mg/dL (NEG-TRACE) Urine Glucose (UA) Negative mg/dL (NEG) Urine Ketones (Stick) Negative mg/dL (NEG) Urine Blood Large (NEG) Urine Nitrite Negative (NEG) Urine Bilirubin Negative (NEG) Urine Urobilinogen Dipstick 1.0 mg/dL (0.2 mg/dL) Urine Leukocyte Esterase Moderate (NEG) Urine RBC 20-40 /HPF (0-2) Urine WBC 5-10 /HPF (0-4) Urine Squamous Epithelial Cells Mod /LPF Urine Bacteria Moderate /HPF (0-FEW) Urine Mucus Mod /LPF Microbiology 03/04/17 Wet Prep - Final, Complete EKG EKG [] Radiology/Procedures Radiology/Procedures [] Course & Med Decision Making Course & Med Decision Making Pertinent Labs and Imaging studies reviewed. (See chart for details) Patient stated that she was having some cramping Tylenol was ordered. Ultrasound report shows a heart rate of 133. Spoke with patient regards to the ultrasound report. Also further provided information that since she was seen before in the cramping had stopped and the bleeding had stopped patient did become sexually active again and which created sore cramping and pain and vaginal bleeding. 1215 vaginal exam completed with Parisa RN at bedside. Cultures obtained and sent to lab. Does appear to have scant amount of blood in the vaginal vault. No clots noted cervix appears to be closed. Spoke with Frances Marie the CLIENT SERVICES ASSISTANT from [facility] in which patient sees Dr. Marianna Reina. Provided them with the ultrasound reports from the last 2 visits as well as the blood type for this patient. Patient will be discharged home with recommendations for bed rest until the bleeding has stopped 24 hours and then she may start doing slow activities. Patient will be encouraged to use pelvic rest which she was instructed to avoid placing anything into the pelvic area. Patient will be instructed to use Tylenol for pain and discomfort. She'll be discharged home in stable condition with recommendations to call Tuesday for her follow-up appointment and come from the appointment in which she states she has next week. Patient will be discharged in stable condition signs and symptoms to return back to the emergency department and been provided. Shunt was also encouraged to continue with the antibiotic she has for her urinary tract infection. [] Dragon Disclaimer Dragon Disclaimer This electronic medical record was generated, in whole or in part, using a voice recognition dictation system. Departure Departure Impression: Primary Impression: Abdominal pain affecting Additional Impression: UTI (urinary tract infection) Disposition: 01 HOME, SELF-CARE Condition: STABLE Referrals: NO PCP (PCP) Patient Instructions: Threatened Miscarriage, [id number], Urinary Tract Infection, [id number] Additional Instructions: Home to rest. Bed rest until you have no vaginal bleeding for 24 hours and then you may start doing light activity. If bleeding would start again you need to go back to complete bed rest. Pelvic rest as we had talked about. Nothing to be inserted into her vaginal area. This includes no sexual intercourse no foreplay. Continue to take her medications in which you have for your urinary tract infection. Tylenol for cramping and pain. Drink plenty of fluids such as water and cranberry juice. Avoid cranberry juice cocktail, carbonated beverages, citrus fruits and alcohol sees her considered irritants to the bladder. Follow-up with your CLIENT SERVICES ASSISTANT next week if she state you have an appointment. Return back to emergency department sign symptoms of become worse. Problem Qualifiers JALEN CARDOZA W[employer] PU[employer] INST[employer]ER March 04, 2017 11:32
[2017-03-04] MEDS ORDERED: ACETAMINOPHEN 500 MG TABLET PO ONE (11:45)
--- NOTE | 2017-03-04 12:05 | RAD ---
Obstetrical ultrasound, 03/04/2017: History: Vaginal bleeding with marginal placenta previa Transabdominal scans were obtained and compared to a study from 02/23/2017. There is a single intrauterine fetus in a variable presentation. The biparietal diameter measures 3.5 cm compatible with a gestational age of 16-17 weeks. This corresponds well to the other measurements and yields a sonographic EDC of 08/14/2017. This correlates well with the EDC of 08/11/2017 established on the initial study of 12/17/2016. Normal activity and heart motion were seen. The heart rate is 133 bpm. No specific abnormality is detected. A normal amount of amniotic fluid is present. The placenta lies posteriorly. The cervical length is estimated at 4 cm. The inferior margin of the placenta lies approximately 1.2 cm from the internal cervical os. The placenta is considered to be low lying. The hypoechoic area seen in the endocervical canal region on the previous study has regressed. No funneling of the internal cervical os is seen. No periplacental hemorrhage is evident. IMPRESSION: 1. Single viable and uterine fetus of 16-17 weeks gestational age. 2. Low-lying placenta. 3. Previously seen minimal fluid in the endocervical canal has regressed.
[2017-03-04 13:10] VITALS: BP 98/61
== END 2017-03-04 13:40 | disposition home or self-care (01) ==
LOC: ER 12:13
DX: O23.42 Unspecified infection of urinary tract in pregnancy, second trimester (principal); Z3A.16 16 weeks gestation of pregnancy; Z90.49 Acquired absence of other specified parts of digestive tract; Z91.013 Allergy to seafood
CPT/HCPCS: 76805; 81001; 87086; 87491; 87591; 99285; Q0111

== ENCOUNTER 2017-05-18 20:29 | Observation (INO) | payer SELFPAY ==
[2017-05-18] MEDS ORDERED: IV RINGERS,LACTATED 1000ML 1,000 ML IV SCH (20:32)
[2017-05-18] MEDS ORDERED: ACETAMINOPHEN 325 MG TABLET. PO PRN (20:45)
[2017-05-18] MEDS ORDERED: ONDANSETRON PF 4 MG/2 ML VIAL. IV PRN (20:45)
[2017-05-18 20:58] LABS: BILIRUBIN,URINE NEGATIVE (NEG); GLUCOSE,URINE NEGATIVE (NEG); NITRITE,URINE NEGATIVE (NEG); PH,URINE 6.5; PROTEIN,URINE NEGATIVE (NEG-TRACE)
[2017-05-18 21:02] LABS: BARBITURATES NEG (NEG); BENZODIAZEPINES NEG (NEG); CANNABINOIDS NEG (NEG); COCAINE NEG (NEG); METHADONE NEG (NEG); OPIATES NEG (NEG); PHENCYCLIDINE NEG (NEG)
[2017-05-18 21:07] LABS: BACTERIA,URINE MODERATE /HPF (0-FEW); SQUAMOUS EPITHELIAL CELL,UR MOD /LPF
--- NOTE | 2017-05-18 23:00 | RAD ---
Limited obstetrical ultrasound HISTORY: Cramping for 4 days, COMPARISON: March 04, 2017 FINDINGS: Multiple transabdominal sonographic images of the pelvis are submitted. There is a single intrauterine fetus in cephalic presentation. There is posterior placenta extending to the right, margin of placenta about 1.9 cm from the internal os. There is demonstrable cardiac activity 135 bpm. There is a four-chamber view of the heart. stomach and urinary bladder are demonstrated. Exam does not fully evaluate anatomy. Subjectively amniotic fluid volume is within normal limits. Biometry data are as follows: Biparietal diameter 6.37 cm corresponds with 25 weeks 5 days Head circumference 24.87 cm corresponds with 27 weeks 0 days Abdominal circumference 22.9 cm corresponds with 27 weeks 2 days Femur length 5.02 cm corresponds with 27 weeks 0 days Adjusted ultrasound age 26 weeks 5 days with estimated delivery date of 08/19/2017. LMP age is 27 weeks 3 days with estimated delivery date of 08/14/2017 Estimated weight 1020 g +/- 151 g Estimated CHEMA 10.4 cm. IMPRESSION: 1. There is a single viable intrauterine , cephalic presentation. There is posterior placenta margin, low lying with placental margin about 1.9 cm from the internal os. Electronically signed by: Rip Carrasco MD (05/18/2017 10:57 PM) [facility]
== END 2017-05-18 23:09 | disposition home or self-care (01) ==
LOC: 3 SO LND 20:29
PROVIDERS: ADMIT Obstetrics & Gynecology; ATTEND Obstetrics & Gynecology
DX: O26.892 Other specified pregnancy related conditions, second trimester (principal); R10.9 Unspecified abdominal pain; Z3A.27 27 weeks gestation of pregnancy
CPT/HCPCS: 76815; 80307; 81001; 87086; G0378; G0379; G0479

== ENCOUNTER 2017-06-13 08:48 | Emergency (ER) | payer SELFPAY ==
[~2017-06-13] VITALS: Ht 160 cm; Wt 54.4 kg
[2017-06-13 08:55] VITALS: BP 112/59
[2017-06-13] MEDS ORDERED: AMOX875T PO (10:20)
[2017-06-13] MEDS ORDERED: PROAIR RESPICL90 MCG IH (10:20)
--- NOTE | 2017-06-13 10:21 | PHYS DOC ---
Past Medical History Past Medical History: No Pertinent History Past Surgical History: Appendectomy Additional Past Surgical Histo: cyst removed under L arm Alcohol Use: None Drug Use: None Adult General Chief Complaint Chief Complaint: COUGH HPI HPI Patient is a 26 year old female currently 31 weeks 3 para 2 who presents today complaining of coughing, bilateral ear pain, nasal congestion for 7 days. Patient denies any fever. Patient denies any abdominal pain urgency frequency dysuria or urgency, denies any vaginal bleeding. She states she follows up with her OB for her at [facility]. Review of Systems Review of Systems Eyes: Denies change in visual acuity, redness, or eye pain [] HENT: bilateral ear pain, sore throat nasal congestion Respiratory: cough Cardiovascular: No additional information not addressed in HPI [] GI: : Denies dysuria or hematuria [] Musculoskeletal: Denies back pain or joint pain [] Integument: Denies rash or skin lesions [] Neurologic: Denies headache, focal weakness or sensory changes [] Endocrine: Denies polyuria or polydipsia [] Allergies Allergies Allergies Coded Allergies Type Severity Reaction Last Updated Verified shellfish derived Allergy Severe throat itching and/soa/vomiting 03/04/17 Yes Physical Exam Physical Exam Constitutional: Well developed, well nourished, no acute distress, non-toxic appearance. [] HENT: Normocephalic, atraumatic, bilateral external ears normal, oropharynx moist, no oral exudates, nose normal. [] Eyes: PERRLA, EOMI, conjunctiva normal, no discharge. [] Neck: Normal range of motion, no tenderness, supple, no stridor. [] Cardiovascular:Heart rate regular rhythm, no murmur [] Lungs & Thorax: Bilateral breath sounds clear to auscultation [] Abdomen: Gravid abdomen. Bowel sounds normal, soft, no tenderness, no masses, no pulsatile masses. [] Skin: Warm, dry, no erythema, no rash. [] Back: No tenderness, no CVA tenderness. [] Extremities: No tenderness, no cyanosis, no clubbing, ROM intact, no edema. [] Neurologic: Alert and oriented X 3, normal motor function, normal sensory function, no focal deficits noted. [] Psychologic: Affect normal, judgement normal, mood normal. [] Current Patient Data Vital Signs Vital Signs Date Time Temp Pulse Resp B/P (MAP) Pulse Ox O2 Delivery O2 Flow Rate FiO2 06/13/17 08:55 98.2 108 20 112/59 (76) 98 Room Air 98.2 EKG EKG [] Radiology/Procedures Radiology/Procedures [] Course & Med Decision Making Course & Med Decision Making Pertinent Labs and Imaging studies reviewed. (See chart for details) This is a 26-year-old female patient who is currently 31 weeks presenting in the ED with nasal congestion, sore throat and coughing and bilateral ear pain for almost 7 days. Patient denies any abdominal pain, vaginal bleeding urgency frequency or dysuria. She follows up with her OB for her at [facility]. heart rate 142 Patient was discharged with amoxicillin to cover her for otitis and pharyngitis. She was also given a prescription for albuterol inhaler. She was provided return precautions and discharged in stable condition. Dragon Disclaimer Dragon Disclaimer This electronic medical record was generated, in whole or in part, using a voice recognition dictation system. Departure Departure Impression: Primary Impression: Otitis media Additional Impressions: Upper respiratory infection Pharyngitis, acute Cough Disposition: HOME, SELF-CARE Condition: STABLE Referrals: UNKNOWN PCP NAME (PCP) Follow-up with your SENIOR PATROL AGENT Patient Instructions: ABCs of , Otitis Media, Adult, Upper Respiratory Infection, Adult, [id number], Viral and Bacterial Pharyngitis Additional Instructions: You were seen for pharyngitis, otitis media upper respiratory infection in your currently . Complete your antibiotics. Follow-up with the SENIOR PATROL AGENT as soon as possible. Scripts Amoxicillin (AMOXICILLIN) 875 Mg Tablet 1 TAB PO BID, #20 TAB Prov: EVITA CATALAN APRN 06/13/17 Albuterol Sulfate (Proair Respiclick) 90 Mcg Aer.pow.ba 1 PUFF IH PRN Q6HRS Y for SHORTNESS OF BREATH, #1 INHALER Prov: EVITA CATALAN APRN 06/13/17 Problem Qualifiers Primary Impression: Otitis media Otitis media type: other nonsuppurative Chronicity: acute Laterality: bilateral Recurrence: not specified as recurrent Qualified Codes: H65.193 - Other acute nonsuppurative otitis media, bilateral Additional Impressions: Upper respiratory infection URI type: unspecified URI Qualified Codes: J06.9 - Acute upper respiratory infection, unspecified Pharyngitis, acute Pharyngitis/tonsillitis etiology: unspecified etiology Qualified Codes: J02.9 - Acute pharyngitis, unspecified Weeks of gestation: 31 weeks Qualified Codes: Z3A.31 - 31 weeks gestation of EVITA CATALAN APRN Jun 13, 2017 10:21
== END 2017-06-13 10:26 | disposition home or self-care (01) ==
LOC: ER 08:48
DX: O99.513 Diseases of the respiratory system complicating pregnancy, third trimester (principal); J02.9 Acute pharyngitis, unspecified; O99.89 Other specified diseases and conditions complicating pregnancy, childbirth and the puerperium; H65.193 Other acute nonsuppurative otitis media, bilateral; Z3A.31 31 weeks gestation of pregnancy; Z91.013 Allergy to seafood; Z90.49 Acquired absence of other specified parts of digestive tract
CPT/HCPCS: 99283

== ENCOUNTER 2017-06-26 18:17 | Observation (INO) | payer SELFPAY ==
[~2017-06-26 18:17] MED LIST changes: +AMOX875T PO; +PROAIR RESPICL90 MCG IH
[2017-06-26 19:02] LABS: BILIRUBIN,URINE NEGATIVE (NEG); GLUCOSE,URINE NEGATIVE (NEG); NITRITE,URINE NEGATIVE (NEG); PH,URINE 6.5; PROTEIN,URINE NEGATIVE (NEG-TRACE)
[2017-06-26 19:06] LABS: BACTERIA,URINE MANY /HPF (0-FEW); RBC,URINE OCC /HPF (0-2); SQUAMOUS EPITHELIAL CELL,UR MOD /LPF
[2017-06-26] MEDS ORDERED: ACETAMINOPHEN 500 MG TABLET PO ONE (21:30)
[2017-06-26] MEDS ORDERED: IV RINGERS,LACTATED 500ML 1,000 ML IV ONE (21:30)
== END 2017-06-26 22:25 | disposition home or self-care (01) ==
LOC: 3 SO LND 18:17
PROVIDERS: ADMIT Obstetrics & Gynecology; ATTEND Obstetrics & Gynecology
DX: O26.893 Other specified pregnancy related conditions, third trimester (principal); M54.9 Dorsalgia, unspecified; R10.30 Lower abdominal pain, unspecified; R11.0 Nausea; R42 Dizziness and giddiness; Z3A.33 33 weeks gestation of pregnancy
CPT/HCPCS: 81001; 87086; 96360; G0378; G0379; J7120

== ENCOUNTER 2017-07-12 22:00 | Inpatient (IN) | payer SELFPAY ==
[~2017-07-12] VITALS: Ht 157.5 cm; Wt 56.7 kg
[2017-07-12] MEDS ORDERED: IV RINGERS,LACTATED 1000ML 1,000 ML IV SCH (22:15)
[2017-07-12 23:10] LABS: BILIRUBIN,URINE NEGATIVE (NEG); GLUCOSE,URINE NEGATIVE (NEG); NITRITE,URINE NEGATIVE (NEG); PH,URINE 6.5; PROTEIN,URINE NEGATIVE (NEG-TRACE)
[2017-07-12 23:16] LABS: BARBITURATES NEG (NEG); BENZODIAZEPINES NEG (NEG); CANNABINOIDS NEG (NEG); COCAINE NEG (NEG); METHADONE NEG (NEG); OPIATES NEG (NEG); PHENCYCLIDINE NEG (NEG)
[2017-07-12 23:18] LABS: BACTERIA,URINE FEW /HPF (0-FEW); RBC,URINE 0 /HPF (0-2); SQUAMOUS EPITHELIAL CELL,UR MOD /LPF
[2017-07-12] MEDS ORDERED: TERBUTALINE 1 MG/ML VIAL. SQ PRN (23:45)
[2017-07-12] MEDS ORDERED: IBUPROFEN 600 MG TABLET. PO PRN (23:45)
[2017-07-12] MEDS ORDERED: LIDOCAINE 1% PF 30 ML VIAL. INJ PRN (23:45)
[2017-07-12] MEDS ORDERED: fentaNYL PF VIAL 100 MCG/2 ML VIAL IV PRN (23:45)
[2017-07-12] MEDS ORDERED: OXYTOCIN 30 UNIT/500 ML PREMIX 500 ML IV PRN (23:45)
[2017-07-12 23:59] VITALS: BP 120/68
[2017-07-13] MEDS ORDERED: 0.9 % SODIUM CHLORIDE 10 ML DISP.SYRIN. IV PRN
[2017-07-13 00:17] LABS: HEMATOCRIT 32.2 % (36.0-47.0); HEMOGLOBIN 10.6 g/dL (12.0-15.5); RED BLOOD COUNT 3.8 x10^6/uL (3.50-5.40); RED CELL DISTRIBUTION WIDTH 15.9 % (11.5-14.5); WHITE BLOOD COUNT 6.9 x10^3/uL (4.0-11.0)
[2017-07-13] MEDS ORDERED: PENICILLIN G K 5,000,000 UNIT in IV NORMAL SALINE 100ML 100 ML IV ONE (00:30)
[2017-07-13] MEDS: PENICILLIN G K 2,500,000 UNIT in IV NORMAL SALINE 50ML 50 ML IV SCH ×3 (04:57→12:06)
[2017-07-13] MEDS: IV RINGERS,LACTATED 1000ML 1,000 ML IV SCH ×2 (05:00→13:17)
--- NOTE | 2017-07-13 08:09 | PDOC1 ---
OB - History Hx of Present Care: Good Care Ultrasounds: Normal mid trimester US Obstetrical Complications: None Medical Complications: None Past Family/Social History * Past Medical, Surgical, Family and Obstetric Histories reviewed from chart. Rubella: Unknown RPR/VDRL: Unknown GBS Status: Unknown HBsAG: Unknown OB - Chief Complaint & HPI Date of Admission: Date of Admission: Jul 12, 2017 at 22:00 Chief Complaint/History : 2 Para: 1 EGA: 35 Reason for admission: labor Admission Nurse Assessment Rev: Yes Problems: OB - Admission Exam Physical Exam Vitals: VS - Last 72 Hours, by Label Date Time Temp Pulse Resp B/P (MAP) Pulse Ox O2 Delivery O2 Flow Rate FiO2 07/12/17 23:59 98.3 93 20 120/68 (85) Room Air 98.3 HEENT: Normal Heart: Regular Rate Lungs: Clear Abdomen: Gravid, Non tender, Soft Extremities: Edema Reflexes: Normal Cervical Dilatation: 3cm Effacement: 75% Station: -3 Membranes: Intact Heart Rate: Normal Accelerations: Accelerations Present Decelerations: No decelerations Contractions on Admission: 6-10 Minutes Apart Intensity: Moderate Text A: 35 wks IUP PTL GBS unknown P: Admit for PTL. Start Pen G prophylaxis. DOC DOVER Jr, MD Jul 13, 2017 08:09
--- NOTE | 2017-07-29 14:30 | DS ---
DATE OF DISCHARGE: 07/14/2017 ADMIT DIAGNOSIS: labor at 34 weeks. DISCHARGE DIAGNOSIS: labor at 34 weeks. SURGEON: Rowdy Toney MD HOSPITAL COURSE: The patient presented at 34 weeks with labor. She was provided IV fluids. Her cervix had dilated up to 4 cm and remained at 4 cm during her observation. She had no further dilation and was then discharged home with modified bed rest precautions. DISCHARGE DIET: Regular diet. FOLLOWUP: The patient is to follow up in clinic in 1 week with her primary OB provider. ROWDY TONEY MD DR: CHANG/babak JOB#: [id number] / [id number]
[2017-08-05] MEDS ORDERED: HYDR-971 PO (12:37)
[2017-08-05] MEDS ORDERED: NAPR-683 PO (12:37)
== END 2017-07-14 14:45 | disposition home or self-care (01) | DRG 778 ==
LOC: OBSVTOIN 22:00 → 3 SO LND 22:00
PROVIDERS: ADMIT Obstetrics & Gynecology; ATTEND Obstetrics & Gynecology
DX: O60.03 Preterm labor without delivery, third trimester (principal); O26.893 Other specified pregnancy related conditions, third trimester; Z3A.34 34 weeks gestation of pregnancy
CPT/HCPCS: 36415; 80307; 81001; 85027; 86593; 86850; 86900; 86901; 87086; 87186; 87653; J2540; J7120; G0479

== ENCOUNTER 2017-07-20 12:41 | Inpatient (IN) | payer SELFPAY ==
[2017-07-20 14:31] LABS: BILIRUBIN,URINE NEGATIVE (NEG); GLUCOSE,URINE NEGATIVE (NEG); NITRITE,URINE NEGATIVE (NEG); PROTEIN,URINE NEGATIVE (NEG-TRACE)
[2017-07-20 14:42] LABS: BACTERIA,URINE MANY /HPF (0-FEW); RBC,URINE 0 /HPF (0-2); SQUAMOUS EPITHELIAL CELL,UR MANY /LPF
[2017-07-20] MEDS ORDERED: hydrOXYzine IM 50 MG/ML VIAL IM ONE (16:30)
[2017-07-20] MEDS ORDERED: BUTORPHANOL 2 MG/ML VIAL. IV PRN (18:30)
[2017-07-20] MEDS: IV RINGERS,LACTATED 1000ML 1,000 ML IV SCH (20:19)
[2017-07-21] MEDS: IV RINGERS,LACTATED 1000ML 1,000 ML IV SCH (02:30)
--- NOTE | 2017-07-21 09:01 | PDOC ---
SUBJECTIVE Subjective Patient has contractions 36 weeks OBJECTIVE Objective no fever. no bleeding Vital Signs vital signs stable PHYSICAL EXAM Physical Exam Pelvic exam done Cervix thick 3 cm dilated. ASSESSMENT/PLAN Assessment/Plan only observation at this time Problems: COMMENT Lab Laboratory Tests Test 07/20/17 13:15 Urine Collection Type Unknown Urine Color Yellow Urine Clarity Clear Urine pH 7.0 Urine Specific [place] >=1.030 Urine Protein Negative mg/dL (NEG-TRACE) Urine Glucose (UA) Negative mg/dL (NEG) Urine Ketones (Stick) Negative mg/dL (NEG) Urine Blood Negative (NEG) Urine Nitrite Negative (NEG) Urine Bilirubin Negative (NEG) Urine Urobilinogen Dipstick 1.0 mg/dL (0.2 mg/dL) Urine Leukocyte Esterase Moderate (NEG) Urine RBC 0 /HPF (0-2) Urine WBC 1-4 /HPF (0-4) Urine Squamous Epithelial Cells Many /LPF Urine Bacteria Many /HPF (0-FEW) Urine Mucus Marked /LPF ERIC DICKSON MD Jul 21, 2017 09:01
== END 2017-07-21 14:45 | disposition home or self-care (01) | DRG 780 ==
LOC: 3 SO LND 12:41 → OBSVTOIN 14:24
PROVIDERS: ADMIT Obstetrics & Gynecology; ATTEND Obstetrics & Gynecology
DX: O47.9 False labor, unspecified (principal); Z3A.36 36 weeks gestation of pregnancy
CPT/HCPCS: 81001; 87086; G0378; G0379; J3410; J7120

== ENCOUNTER 2017-08-03 06:02 | Inpatient (IN) | payer SELFPAY ==
[~2017-08-03] VITALS: Ht 157.5 cm; Wt 58.5 kg
[2017-08-03] MEDS ORDERED: IBUPROFEN 600 MG TABLET. PO PRN (06:15)
[2017-08-03] MEDS ORDERED: 0.9 % SODIUM CHLORIDE 10 ML DISP.SYRIN. IV PRN ×2 (06:15→17:30)
[2017-08-03] MEDS ORDERED: LIDOCAINE 1% PF 30 ML VIAL. INJ PRN (06:15)
[2017-08-03] MEDS ORDERED: OXYTOCIN 30 UNIT/500 ML PREMIX 500 ML IV PRN ×3 (06:15→17:30)
[2017-08-03] MEDS ORDERED: TERBUTALINE 1 MG/ML VIAL. SQ PRN (06:15)
[2017-08-03] MEDS ORDERED: fentaNYL PF VIAL 100 MCG/2 ML VIAL IV PRN (06:15)
[2017-08-03] MEDS ORDERED: BUTORPHANOL 2 MG/ML VIAL. IV PRN ×2 (06:15)
[2017-08-03 06:26] VITALS: BP 103/69
[2017-08-03] MEDS: IV RINGERS,LACTATED 1000ML 1,000 ML IV SCH ×3 (06:30→15:32)
[2017-08-03] MEDS ORDERED: AMPICILLIN SODIUM 2 GM in IV NORMAL SALINE 100ML 100 ML IV ONE (07:00)
[2017-08-03 07:19] LABS: BILIRUBIN,URINE NEGATIVE (NEG); GLUCOSE,URINE NEGATIVE (NEG); NITRITE,URINE NEGATIVE (NEG); PH,URINE 6.5; PROTEIN,URINE NEGATIVE (NEG-TRACE)
[2017-08-03 07:39] LABS: RBC,URINE 0 /HPF (0-2)
[2017-08-03 07:40] LABS: BACTERIA,URINE MODERATE /HPF (0-FEW); SQUAMOUS EPITHELIAL CELL,UR MANY /LPF
[2017-08-03 08:06] LABS: HEMOGLOBIN 10.8 g/dL (12.0-15.5); RED BLOOD COUNT 4.08 x10^6/uL (3.50-5.40); RED CELL DISTRIBUTION WIDTH 17.4 % (11.5-14.5); WHITE BLOOD COUNT 5.9 x10^3/uL (4.0-11.0)
[2017-08-03] MEDS ORDERED: AMPICILLIN SODIUM 1 GM in IV NORMAL SALINE 50ML 50 ML IV SCH (11:00)
[2017-08-03] MEDS ORDERED: L&D EPIDURAL CASSETTE 100 ML EP ONE (14:18)
[2017-08-03] MEDS ORDERED: ROPIVacaine 0.2% IN 0.9%NACL PF 40 MG/20 ML DISP.SYRIN. ONE ×2 (14:18→14:30)
[2017-08-03] MEDS ORDERED: L&D EPIDURAL CASSETTE 100 ML PUMP.RESVR. EP ONE (14:30)
[2017-08-03] MEDS ORDERED: SIMETHICONE 80 MG TAB.CHEW PO PRN (17:30)
[2017-08-03] MEDS ORDERED: PHENYLEPH/MINERAL OIL/PETROLAT RECTAL OINTMENT 28GM TUBE. RC PRN (17:30)
[2017-08-03] MEDS ORDERED: ACETAMINOPHEN 325 MG TABLET. PO PRN (17:30)
[2017-08-03] MEDS ORDERED: MAG HYDROX/ALUMINUM HYD/SIMETH 30 ML ORAL.SUSP PO PRN (17:30)
[2017-08-03] MEDS ORDERED: HYDROCORTISONE 1% TOPICAL OINTMENT 30GM TUBE. TP PRN (17:30)
[2017-08-03] MEDS ORDERED: HYDROcodone/APAP 5/325MG 1 TAB TABLET PO PRN (17:30)
[2017-08-03] MEDS ORDERED: ZOLPIDEM 5 MG TABLET. PO PRN (17:30)
[2017-08-03] MEDS ORDERED: MAGNESIUM HYDROXIDE 2,400 MG/30 ML ORAL.SUSP. PO PRN (17:30)
[2017-08-03] MEDS ORDERED: BENZOCAINE 20% TOPICAL AEROSOL SPRAY 57GM CAN. TP PRN (17:30)
[2017-08-03] MEDS ORDERED: diphenhydrAMINE HCL 25 MG CAPSULE PO PRN (17:30)
--- NOTE | 2017-08-03 17:34 | PDOC ---
VAGINAL DELIVERY DATE DATE: 08/03/17 TIME: 17:33 VAGINAL DELIVERY: VTX VACCUM ASSISTED: No PLACENTA: Spontaneous SEX: Female WEIGHT Weight [ ] Amniotic Fluid: Clear PAIN: Epidural EPISIOTOMY: No EXTENSION: No EBL 300cc COMPLICATIONS None CONDITION Stable Signs of Intrauterine Infectio: None Shoulder Dystocia: No DIAGNOSIS TIUP del Problems: SAUL ERICKSON MD Aug 03, 2017 17:34
[2017-08-03 21:30] VITALS: BP 104/62
[2017-08-03] MEDS: IBUPROFEN 800 MG TABLET. PO SCH (21:51)
[2017-08-03 22:31] VITALS: BP 98/62
[2017-08-03 23:12] LABS: RPR REFLEX Non Reactive (Non Reactive)
[2017-08-04] MEDS: IBUPROFEN 800 MG TABLET. PO SCH ×2 (05:58→16:32)
[2017-08-04 06:24] VITALS: BP 111/63
[2017-08-04] MEDS: FERROUS SULFATE 325 MG TABLET. PO SCH ×2 (08:44→17:00)
[2017-08-04 11:45] VITALS: BP 112/66
--- NOTE | 2017-08-04 13:40 | PDOC ---
Provider Note Provider Note Doing well VSS uterus NTTP FU in AM SAUL ERICKSON MD Aug 04, 2017 13:40
--- NOTE | 2017-08-04 13:43 | PDOC1 ---
OB - History Hx of Present Care: Good Care Ultrasounds: Normal mid trimester US Obstetrical Complications: None Medical Complications: None Past Family/Social History * Past Medical, Surgical, Family and Obstetric Histories reviewed from chart. Blood Type: O+ Rubella: Immune RPR/VDRL: Negative GBS Status: Negative HBsAG: Negative OB - Chief Complaint & HPI Date of Admission: Date of Admission: Aug 03, 2017 at 06:02 Chief Complaint/History : 4 Para: 2 EDC: Aug 10, 2017 Reason for admission: induction of labor Indication for induction: other Admission Nurse Assessment Rev: Yes Problems: OB - Admission Exam Physical Exam Vitals: VS - Last 72 Hours, by Label Date Time Temp Pulse Resp B/P (MAP) Pulse Ox O2 Delivery O2 Flow Rate FiO2 08/04/17 06:24 98.0 72 16 111/63 (79) 98.0 08/03/17 22:31 98.1 90 14 98/62 (74) 98.1 08/03/17 21:30 97.6 91 16 104/62 (76) Room Air 97.6 08/03/17 06:26 97.6 103 18 103/69 (80) Room Air 97.6 HEENT: Normal, Nasal Mucosa Normal, Oropharynx Normal, Moist Membranes, Fontanelles Normal Heart: Regular Rate Lungs: Clear Abdomen: Gravid Extremities: Normal Pulses, No tenderness or swelling Reflexes: Normal Cervical Dilatation: 2cm Effacement: 25% Membranes: Intact Amniotic Fluid: Clear Heart Rate: Normal Accelerations: Accelerations Present Decelerations: No decelerations Intensity: Moderate Assessment/Plan Assessment/Plan TIUP Induction ACSVD Problems: SAUL ERICKSON MD Aug 04, 2017 13:43
[2017-08-04 20:00] VITALS: BP 100/66
[2017-08-05] VITALS: BP 98/60
[2017-08-05 04:30] VITALS: BP 97/55
[2017-08-05] MEDS: FERROUS SULFATE 325 MG TABLET. PO SCH (08:13)
--- NOTE | 2017-08-05 12:35 | PDOC3 ---
OB DISCHARGE SUMMARY DATE OF ADMISSION: 08/03/17 DATE OF DISCHARGE: 08/05/17 REASON FOR ADMISSION: Induction of labor PROCEDURES: Ultrasound INTRAPARTUM PROCEDURES: Spontanous Vag Deliv PROCEDURES: None OPERATIONS: None DISCHARGE DIAGNOSIS: Term Delivered DISCHARGE INFORMATION: Activity, Diet HOSPITAL COURSE unremarkable CONDITION AT DISCHARGE Stable SAUL ERICKSON MD Aug 05, 2017 12:35
[2017-08-05] MEDS ORDERED: NAPR500T PO (12:37)
[2017-08-05] MEDS ORDERED: HYDR-971 PO (12:37)
[2017-08-05 15:39] VITALS: BP 102/68
== END 2017-08-05 17:36 | disposition home or self-care (01) | DRG 775 ==
LOC: 3 SO LND 06:02 → 3 NORTH 21:34
PROVIDERS: ADMIT Specialist; ATTEND Specialist
PROC: 10E0XZZ Delivery of Products of Conception, External Approach (ICD-10-PCS; principal; 2017-08-03)
PROC: 3E0S3BZ Introduction of Anesthetic Agent into Epidural Space, Percutaneous Approach (ICD-10-PCS; 2017-08-03)
PROC: 00HU33Z Insertion of Infusion Device into Spinal Canal, Percutaneous Approach (ICD-10-PCS; 2017-08-03)
DX: O80 Encounter for full-term uncomplicated delivery (principal); Z37.0 Single live birth; Z3A.00 Weeks of gestation of pregnancy not specified; Z91.013 Allergy to seafood
CPT/HCPCS: 36415; 81001; 85014; 85027; 86593; 86850; 86900; 86901; 87086; 87186; 87653; J0290; J2590; J2795; J7120

== ENCOUNTER 2017-12-01 18:56 | Inpatient (IN) | payer SELFPAY ==
[2017-12-01 19:28] LABS: ADD MAN DIFF? NO
[2017-12-01 19:30] LABS: BASO % 1 % (0-3); EOS % 2 % (0-3); HEMATOCRIT 37.3 % (36.0-47.0); HEMOGLOBIN 12.8 g/dL (12.0-15.5); LYMPH # 0.8 x10^3/uL (1.0-4.8); LYMPH % 31 % (24-48); MEAN CORPUSCULAR HEMOGLOBIN 29 pg (25-35); MEAN CORPUSCULAR HGB CONC 34 g/dL (31-37); MEAN CORPUSCULAR VOLUME 83 fL (79-100); MONO # 0.4 x10^3/uL (0.0-1.1); MONO % 14 % (0-9); NEUT # 1.3 x10^3uL (1.8-7.7); NEUT % 52 % (31-73); PLATELET COUNT 224 x10^3/uL (140-400); RED BLOOD COUNT 4.48 x10^6/uL (3.50-5.40); RED CELL DISTRIBUTION WIDTH 17.3 % (11.5-14.5); WHITE BLOOD COUNT 2.5 x10^3/uL (4.0-11.0)
[2017-12-01 19:40] LABS: ANION GAP 11 (6-14); BLOOD UREA NITROGEN 13 mg/dL (7-20); BUN/CREATININE RATIO 26 (6-20); CALCIUM 8.7 mg/dL (8.5-10.1); CARBON DIOXIDE 25 mmol/L (21-32); CHLORIDE 106 mmol/L (98-107); CREATININE 0.5 mg/dL (0.6-1.0); GFR 177.8; GLUCOSE 82 mg/dL (70-99); POTASSIUM 3.4 mmol/L (3.5-5.1); SODIUM 142 mmol/L (136-145)
[2017-12-01 19:46] LABS: ALBUMIN 3.7 g/dL (3.4-5.0); ALBUMIN/GLOBULIN RATIO 0.8 (1.0-1.7); ALK PHOS 84 U/L (46-116); ALT (SGPT) 21 U/L (14-59); AST (SGOT) 18 U/L (15-37); LIPASE 66 U/L (73-393); TOTAL BILIRUBIN 0.2 mg/dL (0.2-1.0); TOTAL PROTEIN 8.2 g/dL (6.4-8.2)
[2017-12-01 19:48] LABS: BILIRUBIN,URINE SMALL (NEG); CLARITY,URINE CLOUDY; COLOR,URINE YELLOW; GLUCOSE,URINE NEGATIVE (NEG); NITRITE,URINE NEGATIVE (NEG); PH,URINE 5.5; PROTEIN,URINE NEGATIVE (NEG-TRACE); UROBILINOGEN,URINE 0.2 mg/dL (0.2 mg/dL)
[2017-12-01 19:48] LABS: URINE HCG POC HCG NEGATIVE (Negative)
[2017-12-01] MEDS: IV NORMAL SALINE 1000ML BAG 1,000 ML IV ×2 (20:00→23:03)
[2017-12-01] MEDS: ONDANSETRON PF 4 MG/2 ML VIAL. IV (20:00)
[2017-12-01] MEDS: fentaNYL PF VIAL 100 MCG/2 ML VIAL IV ×2 (20:01→20:55)
[2017-12-01 20:03] LABS: BACTERIA,URINE 0 /HPF (0-FEW); RBC,URINE 0 /HPF (0-2); SQUAMOUS EPITHELIAL CELL,UR OCC /LPF; WBC,URINE OCC /HPF (0-4)
[2017-12-01] MEDS ORDERED: CONTRAST GIVEN MC (20:30)
[2017-12-01] MEDS: IOHEXOL 300 MG/ML 100ML VIAL. IV (20:39)
[2017-12-01] MEDS ORDERED: ACETAMINOPHEN 325 MG TABLET. PO (22:45)
[2017-12-01] MEDS: MORPHINE SULFATE 2 MG/ML DISP.SYRIN. IV (23:06)
[2017-12-02] MEDS: MORPHINE SULFATE 2 MG/ML DISP.SYRIN. IV ×2 (01:13→04:38)
[2017-12-02] MEDS: ONDANSETRON PF 4 MG/2 ML VIAL. IV (04:38)
[2017-12-02 07:20] LABS: ADD MAN DIFF? NO
[2017-12-02] MEDS: IV NORMAL SALINE 1000ML BAG 1,000 ML IV (07:34)
[2017-12-02 07:41] LABS: BASO % 1 % (0-3); EOS # 0.1 x10^3/uL (0.0-0.7); EOS % 2 % (0-3); HEMATOCRIT 36.5 % (36.0-47.0); HEMOGLOBIN 12.1 g/dL (12.0-15.5); LYMPH # 1.1 x10^3/uL (1.0-4.8); LYMPH % 34 % (24-48); MEAN CORPUSCULAR HEMOGLOBIN 28 pg (25-35); MEAN CORPUSCULAR HGB CONC 33 g/dL (31-37); MEAN CORPUSCULAR VOLUME 84 fL (79-100); MONO # 0.5 x10^3/uL (0.0-1.1); MONO % 16 % (0-9); NEUT # 1.5 x10^3uL (1.8-7.7); NEUT % 47 % (31-73); PLATELET COUNT 196 x10^3/uL (140-400); RED BLOOD COUNT 4.34 x10^6/uL (3.50-5.40); RED CELL DISTRIBUTION WIDTH 16.5 % (11.5-14.5); WHITE BLOOD COUNT 3.3 x10^3/uL (4.0-11.0)
[2017-12-02 08:00] LABS: ALBUMIN 3.5 g/dL (3.4-5.0); ALBUMIN/GLOBULIN RATIO 0.8 (1.0-1.7); ALK PHOS 79 U/L (46-116); ALT (SGPT) 18 U/L (14-59); ANION GAP 14 (6-14); AST (SGOT) 21 U/L (15-37); BLOOD UREA NITROGEN 10 mg/dL (7-20); BUN/CREATININE RATIO 25 (6-20); CARBON DIOXIDE 21 mmol/L (21-32); CHLORIDE 108 mmol/L (98-107); CREATININE 0.4 mg/dL (0.6-1.0); GLUCOSE 48 mg/dL (70-99); SODIUM 143 mmol/L (136-145); TOTAL BILIRUBIN 0.3 mg/dL (0.2-1.0); TOTAL PROTEIN 7.8 g/dL (6.4-8.2)
[2017-12-02 10:40] LABS: MAGNESIUM 1.8 mg/dL (1.8-2.4)
[2017-12-02] MEDS: POTASSIUM CHLORIDE 20 MEQ TABLET.ER. PO (11:38)
[2017-12-02] MEDS ORDERED: hydrALAZINE 20 MG/ML VIAL. IVP (13:00)
[2017-12-02] MEDS ORDERED: ONDANSETRON PF 4 MG/2 ML VIAL. IV (13:00)
[2017-12-02] MEDS ORDERED: MORPHINE SULFATE 2 MG/ML DISP.SYRIN. IV (13:00)
[2017-12-02] MEDS ORDERED: ACETAMINOPHEN 325 MG TABLET. PO (13:00)
[2017-12-02] MEDS ORDERED: traMADol 50 MG TABLET PO (13:00)
[2017-12-02] MEDS ORDERED: DOCUSATE SODIUM 100 MG CAPSULE. PO (13:00)
[2017-12-02] MEDS: ENOXAPARIN 40 MG/0.4 ML SYRINGE. SQ (13:28)
== END 2017-12-02 16:45 | disposition home or self-care (01) | DRG 392 ==
LOC: ER 18:56 → ED HOLD 22:10 → 4 NORTH 23:45
DX: K52.9 Noninfective gastroenteritis and colitis, unspecified (principal); D73.4 Cyst of spleen; E87.6 Hypokalemia; D73.89 Other diseases of spleen; F32.9 Major depressive disorder, single episode, unspecified; Q85.00 Neurofibromatosis, unspecified; Z91.013 Allergy to seafood; Z82.49 Family history of ischemic heart disease and other diseases of the circulatory system; Z90.49 Acquired absence of other specified parts of digestive tract
CPT/HCPCS: 36415; 74177; 80053; 81001; 81025; 83690; 83735; 85025; 96361; 96374; 96375; 96376; 99285-25; J1650; J2270; J2405; J3010; J7030; Q9967

== ENCOUNTER 2018-08-28 17:06 | Emergency (ER) | payer SELFPAY ==
[~2018-08-28] VITALS: Ht 160 cm; Wt 45.4 kg
[~2018-08-28 17:06] MED LIST changes: +HYDR-971 PO; +NAPR-683 PO; +POTA10TA12 PO; -POTASSIUM CHLO10 MEQ PO
--- NOTE | 2018-08-28 17:31 | PHYS DOC ---
Past Medical History Past Medical History: No Pertinent History Past Surgical History: Appendectomy Additional Past Surgical Histo: cyst removed under L arm Alcohol Use: None Drug Use: None Adult General Chief Complaint Chief Complaint: DIARRHEA HPI HPI Patient is a 27 year old female who presents with diarrhea. Patient states she has had diarrhea for 3 weeks. She endorses multiple episodes daily. She describes it to be liquid and brown. She had no recent travel. She has not had similar symptoms in the past. She denies hematochezia. No fever or chills. No abdominal pain. She does complain of some lower back pain over the same time. No nausea or vomiting. No ill family members. Last period was on August 08. She denies vaginal complaints or urinary complaints today. Review of Systems Review of Systems Constitutional: Denies fever or chills Eyes: Denies change in visual acuity HENT: Denies nasal congestion Respiratory: Denies cough or shortness of breath Cardiovascular: No additional information not addressed in HPI GI: Denies abdominal pain : Denies dysuria or hematuria Integument: Denies rash or skin lesions Neurologic: Denies neuro complaints Endocrine: Denies polyuria All other systems were reviewed and found to be within normal limits, except as documented in this note. Current Medications Current Medications Current Medications Medications (Trade) Dose Ordered Sig/Flynn Start Time Stop Time Status Last Admin Dose Admin Azithromycin (Zithromax) 1,000 mg 1X ONCE 08/28/18 19:30 08/28/18 19:31 Sodium Chloride 500 ml @ 500 mls/hr 1X ONCE 08/28/18 18:45 08/28/18 19:44 08/28/18 18:42 500 MLS/HR Allergies Allergies Allergies Coded Allergies Type Severity Reaction Last Updated Verified shellfish derived Allergy Severe throat itching and/soa/vomiting 03/04/17 Yes Physical Exam Physical Exam Constitutional: Well developed, well nourished, no acute distress, non-toxic appearance. [] HENT: Normocephalic, atraumatic, bilateral external ears normal, oropharynx moist, no oral exudates, nose normal. [] Eyes: PERRLA, EOMI, conjunctiva normal, no discharge. [] Neck: Normal range of motion, no tenderness, supple, no stridor. [] Cardiovascular:Heart rate regular rhythm, no murmur [] Lungs & Thorax: Bilateral breath sounds clear to auscultation [] Abdomen: Bowel sounds normal, soft, no tenderness, no masses, no pulsatile masses. [] Skin: Warm, dry, no erythema, no rash. [] Back: No tenderness, no CVA tenderness. [] Extremities: No tenderness, no cyanosis, no clubbing, ROM intact, no edema. [] Neurologic: Alert and oriented X 3, normal motor function, normal sensory function, no focal deficits noted. [] Psychologic: Affect normal, judgement normal, mood normal. [] Current Patient Data Vital Signs Vital Signs Date Time Temp Pulse Resp B/P (MAP) Pulse Ox O2 Delivery O2 Flow Rate FiO2 08/28/18 17:21 98.5 112 15 110/59 (76) 100 Room Air 98.5 Lab Values Laboratory Tests Test 08/28/18 17:06 08/28/18 17:21 08/28/18 18:00 Urine Collection Type Unknown Urine Color Yellow Urine Clarity Clear Urine pH 6.0 Urine Specific [place] >=1.030 Urine Protein Negative mg/dL (NEG-TRACE) Urine Glucose (UA) Negative mg/dL (NEG) Urine Ketones (Stick) 15 mg/dL (NEG) Urine Blood Small (NEG) Urine Nitrite Negative (NEG) Urine Bilirubin Negative (NEG) Urine Urobilinogen Dipstick 1.0 mg/dL (0.2 mg/dL) Urine Leukocyte Esterase Small (NEG) Urine RBC 3-5 /HPF (0-2) Urine WBC 1-4 /HPF (0-4) Urine Squamous Epithelial Cells Many /LPF Urine Bacteria Mod /HPF (0-FEW) Urine Mucus Marked /LPF POC Urine HCG, Qualitative Hcg negative (Negative) White Blood Count 5.4 x10^3/uL (4.0-11.0) Red Blood Count 4.24 x10^6/uL (3.50-5.40) Hemoglobin 12.8 g/dL (12.0-15.5) Hematocrit 36.9 % (36.0-47.0) Mean Corpuscular Volume 87 fL (79-100) Mean Corpuscular Hemoglobin 30 pg (25-35) Mean Corpuscular Hemoglobin Concent 35 g/dL (31-37) Red Cell Distribution Width 14.8 % (11.5-14.5) H Platelet Count 263 x10^3/uL (140-400) Neutrophils (%) (Auto) 66 % (31-73) Lymphocytes (%) (Auto) 21 % (24-48) L Monocytes (%) (Auto) 11 % (0-9) H Eosinophils (%) (Auto) 2 % (0-3) Basophils (%) (Auto) 1 % (0-3) Neutrophils # (Auto) 3.5 x10^3uL (1.8-7.7) Lymphocytes # (Auto) 1.1 x10^3/uL (1.0-4.8) Monocytes # (Auto) 0.6 x10^3/uL (0.0-1.1) Eosinophils # (Auto) 0.1 x10^3/uL (0.0-0.7) Basophils # (Auto) 0.0 x10^3/uL (0.0-0.2) Sodium Level 138 mmol/L (136-145) Potassium Level 3.2 mmol/L (3.5-5.1) L Chloride Level 103 mmol/L (98-107) Carbon Dioxide Level 27 mmol/L (21-32) Anion Gap 8 (6-14) Blood Urea Nitrogen 14 mg/dL (7-20) Creatinine 0.6 mg/dL (0.6-1.0) Estimated GFR (Cockcroft-Gault) 144.0 Glucose Level 115 mg/dL (70-99) H Calcium Level 9.0 mg/dL (8.5-10.1) Total Bilirubin 0.2 mg/dL (0.2-1.0) Direct Bilirubin 0.1 mg/dL (0.0-0.2) Aspartate Amino Transferase (AST) 10 U/L (15-37) L Alanine Aminotransferase (ALT) 14 U/L (14-59) Alkaline Phosphatase 69 U/L (46-116) Total Protein 7.3 g/dL (6.4-8.2) Albumin 3.5 g/dL (3.4-5.0) Laboratory Tests 08/28/18 18:00 Laboratory Tests 08/28/18 18:00 EKG EKG [] Radiology/Procedures Radiology/Procedures [] Course & Med Decision Making Course & Med Decision Making Pertinent Labs and Imaging studies reviewed. (See chart for details) 17:20: Patient is seen and examined. No acute distress. Will give IVF's and do stool studies. BMP, CBC. 19:25: All results are reviewed. The patient did have mild ketones in the urine. She has mildly depressed potassium. All signs consistent with dehydration. Regarding her diarrhea, she was unable to give an sample in the emergency department. I discussed treatment options including antibiotic versus no antibiotics empirically. The patient has had symptoms for 3 weeks. She is requesting some antibiotic therapy. She has no fever or abdominal pain to suggest any shiga producing infection. We'll give 1 g of azithromycin in the ER and place her on Cipro for 5 days. She is also advised to use Imodium as needed [id number]. Follow-up with primary care physician or return to the emergency department for any new or worsening symptoms. Jose Maria Disclaimer Jose Maria Disclaimer This electronic medical record was generated, in whole or in part, using a voice recognition dictation system. Departure Departure Disposition: 01 HOME, SELF-CARE Condition: GOOD Referrals: NO PCP (PCP) Scripts Ciprofloxacin Hcl (CIPROFLOXACIN HCL) 500 Mg Tablet 1 TAB PO BID, #10 TAB Prov: EVELIN BLUM DO 08/28/18 EVELIN BLUM DO Aug 28, 2018 17:31
[2018-08-28 17:36] LABS: BILIRUBIN,URINE NEGATIVE (NEG); CLARITY,URINE CLEAR; COLOR,URINE YELLOW; NITRITE,URINE NEGATIVE (NEG); PROTEIN,URINE NEGATIVE (NEG-TRACE)
[2018-08-28 17:50] LABS: BACTERIA,URINE MOD /HPF (0-FEW); SQUAMOUS EPITHELIAL CELL,UR MANY /LPF
[2018-08-28 18:19] LABS: BASO % 1 % (0-3); EOS # 0.1 x10^3/uL (0.0-0.7); EOS % 2 % (0-3); HEMATOCRIT 36.9 % (36.0-47.0); HEMOGLOBIN 12.8 g/dL (12.0-15.5); LYMPH # 1.1 x10^3/uL (1.0-4.8); LYMPH % 21 % (24-48); MEAN CORPUSCULAR HEMOGLOBIN 30 pg (25-35); MEAN CORPUSCULAR HGB CONC 35 g/dL (31-37); MEAN CORPUSCULAR VOLUME 87 fL (79-100); MONO # 0.6 x10^3/uL (0.0-1.1); MONO % 11 % (0-9); NEUT # 3.5 x10^3uL (1.8-7.7); NEUT % 66 % (31-73); PLATELET COUNT 263 x10^3/uL (140-400); RED BLOOD COUNT 4.24 x10^6/uL (3.50-5.40); RED CELL DISTRIBUTION WIDTH 14.8 % (11.5-14.5); WHITE BLOOD COUNT 5.4 x10^3/uL (4.0-11.0)
[2018-08-28 18:34] LABS: CREATININE 0.6 mg/dL (0.6-1.0); POTASSIUM 3.2 mmol/L (3.5-5.1)
[2018-08-28 18:38] LABS: ALBUMIN 3.5 g/dL (3.4-5.0); DIRECT BILIRUBIN 0.1 mg/dL (0.0-0.2); TOTAL BILIRUBIN 0.2 mg/dL (0.2-1.0); TOTAL PROTEIN 7.3 g/dL (6.4-8.2)
[2018-08-28] MEDS ORDERED: IV NORMAL SALINE 500ML BAG 500 ML IV ONE (18:45)
[2018-08-28] MEDS ORDERED: CIPR500T PO (19:24)
[2018-08-28] MEDS ORDERED: AZITHROMYCIN 250 MG TABLET. PO ONE (19:30)
[2018-08-28 19:38] VITALS: BP 120/75
== END 2018-08-28 19:43 | disposition home or self-care (01) ==
LOC: ER 17:06
DX: R19.7 Diarrhea, unspecified (principal); M54.5 Low back pain; Z90.89 Acquired absence of other organs; Z91.013 Allergy to seafood
CPT/HCPCS: 36415; 80048; 80076; 81001; 81025; 85025; 96360; 99284; J7040; Q0144

== ENCOUNTER 2018-09-12 19:13 | Emergency (ER) | payer SELFPAY ==
[~2018-09-12] VITALS: Ht 157.5 cm; Wt 45.4 kg
[~2018-09-12 19:13] MED LIST changes: +CIPR500T PO; +HYDR-3164 PO; -HYDR-971 PO
[2018-09-12 19:30] VITALS: BP 115/66
[2018-09-12] MEDS ORDERED: CIPR500T94 PO (21:18)
[2018-09-12] MEDS ORDERED: METR500T PO (21:18)
--- NOTE | 2018-09-12 21:18 | PHYS DOC ---
Past Medical History Past Medical History: Other Additional Past Medical Histor: NF1 Past Surgical History: Appendectomy Additional Past Surgical Histo: cyst removed under L arm Alcohol Use: None Drug Use: Marijuana Adult General Chief Complaint Chief Complaint: DIARRHEA HPI HPI Patient is a 27 year old [f__sex] who presents with [] Review of Systems Review of Systems Constitutional: Denies fever or chills [] Eyes: Denies change in visual acuity, redness, or eye pain [] HENT: Denies nasal congestion or sore throat [] Respiratory: Denies cough or shortness of breath [] Cardiovascular: No additional information not addressed in HPI [] GI: Denies abdominal pain, nausea, vomiting, bloody stools or diarrhea [] : Denies dysuria or hematuria [] Musculoskeletal: Denies back pain or joint pain [] Integument: Denies rash or skin lesions [] Neurologic: Denies headache, focal weakness or sensory changes [] Endocrine: Denies polyuria or polydipsia [] All other systems were reviewed and found to be within normal limits, except as documented in this note. Allergies Allergies Allergies Coded Allergies Type Severity Reaction Last Updated Verified shellfish derived Allergy Severe throat itching and/soa/vomiting 03/04/17 Yes Physical Exam Physical Exam Constitutional: Well developed, well nourished, no acute distress, non-toxic appearance. [] HENT: Normocephalic, atraumatic, bilateral external ears normal, oropharynx moist, no oral exudates, nose normal. [] Eyes: PERRLA, EOMI, conjunctiva normal, no discharge. [] Neck: Normal range of motion, no tenderness, supple, no stridor. [] Cardiovascular:Heart rate regular rhythm, no murmur [] Lungs & Thorax: Bilateral breath sounds clear to auscultation [] Abdomen: Bowel sounds normal, soft, no tenderness, no masses, no pulsatile masses. [] Skin: Warm, dry, no erythema, no rash. [] Back: No tenderness, no CVA tenderness. [] Extremities: No tenderness, no cyanosis, no clubbing, ROM intact, no edema. [] Neurologic: Alert and oriented X 3, normal motor function, normal sensory function, no focal deficits noted. [] Psychologic: Affect normal, judgement normal, mood normal. [] Current Patient Data Vital Signs Vital Signs Date Time Temp Pulse Resp B/P (MAP) Pulse Ox O2 Delivery O2 Flow Rate FiO2 09/12/18 19:30 98.1 90 18 115/66 (82) 99 Room Air 98.1 Lab Values Laboratory Tests Test 09/12/18 19:50 POC Urine HCG, Qualitative Hcg negative (Negative) EKG EKG [] Radiology/Procedures Radiology/Procedures [] Course & Med Decision Making Course & Med Decision Making Pertinent Labs and Imaging studies reviewed. (See chart for details) [] Dragon Disclaimer Dragon Disclaimer This electronic medical record was generated, in whole or in part, using a voice recognition dictation system. Departure Departure Impression: Primary Impression: Diarrhea Disposition: HOME, SELF-CARE Condition: STABLE Referrals: NO PCP (PCP) Patient Instructions: Diarrhea, [id number], Diet for Diarrhea, Adult Scripts Metronidazole (FLAGYL) 500 Mg Tablet 500 MG PO TID for 7 Days, #21 TAB Prov: TANVI ESCALANTE DO 09/12/18 Ciprofloxacin Hcl (CIPRO) 500 Mg Tablet 1 TAB PO BID for 7 Days, #14 TAB Prov: TANVI ESCALANTE DO 09/12/18 Problem Qualifiers Primary Impression: Diarrhea Diarrhea type: unspecified type Qualified Codes: R19.7 - Diarrhea, unspecified TANVI ESCALANTE DO Sep 12, 2018 21:18
== END 2018-09-12 21:50 | disposition home or self-care (01) ==
LOC: ER 19:13
DX: R19.7 Diarrhea, unspecified (principal); Z90.89 Acquired absence of other organs; Z91.013 Allergy to seafood
CPT/HCPCS: 81025; 99283

== ENCOUNTER 2018-12-26 16:31 | Emergency (ER) | payer SELFPAY ==
[~2018-12-26] VITALS: Ht 157.5 cm; Wt 47.6 kg
[~2018-12-26 16:31] MED LIST changes: +CIPR500T94 PO; +METR500T PO
[2018-12-26 16:36] VITALS: BP 101/69
--- NOTE | 2018-12-26 16:42 | PHYS DOC ---
Past Medical History Past Medical History: Other Additional Past Medical Histor: NF1 Past Surgical History: Appendectomy Additional Past Surgical Histo: cyst removed under L arm Alcohol Use: None Drug Use: Marijuana Adult General Chief Complaint Chief Complaint: COUGH HPI HPI Patient is a 28 year old female presents for evaluation of chills, cough, body aches since Tuesday. She has also had some vomiting, able to keep chicken broth down, had positive test last month. Last menstrual cycle was . She is , has not had OB follow-up yet. EDC 07/10/19 which puts her at 12 weeks gestation per my calculation. She denies any abdominal pain or vaginal bleeding. Review of Systems Review of Systems Constitutional: REPORTS fever or chills [] Eyes: Denies change in visual acuity, redness, or eye pain [] HENT: Denies nasal congestion or sore throat [] Respiratory: REPORTS COUGH [] Cardiovascular: No additional information not addressed in HPI [] GI: Denies abdominal pain, bloody stools or diarrhea REPORTS VOMITING[] : Denies dysuria or hematuria [] Musculoskeletal: Denies back pain or joint pain REPORTS MYALGIAS[] Integument: Denies rash or skin lesions [] Neurologic: Denies headache, focal weakness or sensory changes [] Endocrine: Denies polyuria or polydipsia [] All other systems were reviewed and found to be within normal limits, except as documented in this note. Current Medications Current Medications Current Medications Medications (Trade) Dose Ordered Sig/Flynn Start Time Stop Time Status Last Admin Dose Admin Ondansetron HCl (Zofran Odt) 4 mg 1X ONCE 12/26/18 17:00 12/26/18 17:01 DC 12/26/18 17:00 4 MG Allergies Allergies Allergies Coded Allergies Type Severity Reaction Last Updated Verified shellfish derived Allergy Severe throat itching and/soa/vomiting 03/04/17 Yes Physical Exam Physical Exam Constitutional: Well developed, well nourished, no acute distress, non-toxic appearance. [] Neck: Normal range of motion, no tenderness, supple, no stridor. [] Cardiovascular:Heart rate regular rhythm, no murmur [] Lungs & Thorax: Bilateral breath sounds clear to auscultation [] Abdomen: Bowel sounds normal, soft, no tenderness, no masses, no pulsatile masses. [] Skin: Warm, dry, no erythema, no rash. [] Extremities: No tenderness, no cyanosis, no clubbing, ROM intact, no edema. [] Neurologic: Alert and oriented X 3, normal motor function, normal sensory function, no focal deficits noted. [] Psychologic: Affect normal, judgement normal, mood normal. [] Current Patient Data Vital Signs Vital Signs Date Time Temp Pulse Resp B/P (MAP) Pulse Ox O2 Delivery O2 Flow Rate FiO2 12/26/18 16:36 98.9 115 22 101/69 (80) 99 Room Air 98.9 Lab Values Laboratory Tests Test 12/26/18 16:54 12/26/18 16:56 POC Urine HCG, Qualitative Hcg positive (Negative) Influenza Type A Antigen Negative (NEGATIVE) Influenza Type B Antigen Negative (NEGATIVE) EKG EKG [] Radiology/Procedures Radiology/Procedures [] Course & Med Decision Making Course & Med Decision Making Pertinent Labs and Imaging studies reviewed. (See chart for details) [drinking po fluids s n/v, recommend f/u c OB] Dragon Disclaimer Jose Maria Disclaimer This electronic medical record was generated, in whole or in part, using a voice recognition dictation system. Departure Departure Impression: Primary Impression: Hyperemesis gravidarum Additional Impression: Viral respiratory illness Disposition: HOME, SELF-CARE Condition: STABLE Referrals: NO PCP (PCP) Patient Instructions: Hyperemesis Gravidarum, Upper Respiratory Infection, Adult Scripts Ondansetron Hcl (ZOFRAN) 4 Mg Tablet 1 TAB PO Q6HRS PRN for NAUSEA/VOMITING, #20 TAB Prov: LOLY RICE APRN 12/26/18 Problem Qualifiers LOLY RICE APRN Dec 26, 2018 16:42
[2018-12-26] MEDS ORDERED: ONDANSETRON ODT 4 MG TAB.RAPDIS. PO ONE (17:00)
[2018-12-26 17:32] LABS: INFLUENZA A PATIENT NEGATIVE (NEGATIVE); INFLUENZA B PATIENT NEGATIVE (NEGATIVE)
[2018-12-26] MEDS ORDERED: ONDA4TAB7 PO (17:42)
== END 2018-12-26 18:05 | disposition home or self-care (01) ==
LOC: ER 16:31
DX: O21.0 Mild hyperemesis gravidarum (principal); O99.511 Diseases of the respiratory system complicating pregnancy, first trimester; R05 Cough; Z90.89 Acquired absence of other organs; Z3A.00 Weeks of gestation of pregnancy not specified
CPT/HCPCS: 81025; 87804; 99283; Q0162

== ENCOUNTER 2019-04-03 15:19 | Observation (INO) | payer SELFPAY ==
[~2019-04-03] VITALS: Ht 160 cm; Wt 54.4 kg
[~2019-04-03 15:19] MED LIST changes: +ONDA4TAB7 PO
[2019-04-03 15:37] VITALS: BP 118/58
[2019-04-03 16:28] LABS: BARBITURATES NEG (NEG); BENZODIAZEPINES NEG (NEG); BILIRUBIN,URINE NEGATIVE (NEG); CANNABINOIDS POS (NEG); CLARITY,URINE CLEAR; COCAINE NEG (NEG); COLOR,URINE YELLOW; METHADONE NEG (NEG); NITRITE,URINE NEGATIVE (NEG); OPIATES NEG (NEG); PH,URINE 6.5; PHENCYCLIDINE NEG (NEG); PROTEIN,URINE NEGATIVE (NEG-TRACE); UROBILINOGEN,URINE 0.2 mg/dL (0.2 mg/dL)
[2019-04-03 16:30] LABS: AMPHETAMINE/METHAMPHETAMINE NEG (NEG)
[2019-04-03 16:37] LABS: SQUAMOUS EPITHELIAL CELL,UR MOD /LPF
[2019-04-03 16:38] LABS: BACTERIA,URINE MANY /HPF (0-FEW); RBC,URINE 0 /HPF (0-2); WBC,URINE 20-40 /HPF (0-4)
[2019-04-03] MEDS: IV RINGERS,LACTATED 1000ML 1,000 ML IV SCH ×2 (17:03→18:35)
[2019-04-03] MEDS ORDERED: ACETAMINOPHEN 325 MG TABLET. PO PRN (17:30)
[2019-04-03 17:33] LABS: BASO % 0 % (0-3); EOS # 0.1 x10^3/uL (0.0-0.7); EOS % 1 % (0-3); HEMATOCRIT 31.5 % (36.0-47.0); LYMPH # 0.8 x10^3/uL (1.0-4.8); LYMPH % 12 % (24-48); MEAN CORPUSCULAR HEMOGLOBIN 31 pg (25-35); MEAN CORPUSCULAR HGB CONC 35 g/dL (31-37); MEAN CORPUSCULAR VOLUME 89 fL (79-100); MONO # 0.5 x10^3/uL (0.0-1.1); MONO % 9 % (0-9); NEUT # 4.8 x10^3uL (1.8-7.7); NEUT % 78 % (31-73); PLATELET COUNT 174 x10^3/uL (140-400); RED BLOOD COUNT 3.53 x10^6/uL (3.50-5.40); RED CELL DISTRIBUTION WIDTH 14.1 % (11.5-14.5); WHITE BLOOD COUNT 6.2 x10^3/uL (4.0-11.0)
[2019-04-03] MEDS: AMPICILLIN SODIUM 2 GM in IV NORMAL SALINE 100ML 100 ML IV SCH ×2 (17:56→23:24)
--- NOTE | 2019-04-04 07:55 | RAD ---
Obstetrical ultrasound, 04/03/2019: HISTORY: , pain There is a single intrauterine fetus in a cephalic orientation. The biparietal diameter measures 7.5 cm compatible with a gestational age of 30 weeks. This yields a sonographic EDC of 06/12/2019. The head to abdominal circumference ratio is within normal limits. Normal activity and heart motion were seen. A four-chamber heart is evident with a heart rate of 139 bpm. There is fluid in the bladder and stomach. The visualized portions of the kidneys and spine are unremarkable. The umbilical cord insertion site on the fetus was not adequately delineated due to the position. The weight was estimated at 3 pounds and 2 ounces +/- 7 ounces. The placenta lies posteriorly. No periplacental hemorrhage is seen. There is no evidence of placenta previa. A normal amount of amniotic fluid is present with the CHEMA calculated at 9.8. The cervical length is approximately 4 cm. IMPRESSION: Single viable intrauterine fetus of 30 weeks gestational age as described above. Electronically signed by: Gilmar Kenney MD (04/04/2019 7:52 AM) [facility]
== END 2019-04-04 00:07 | disposition home or self-care (01) ==
LOC: ER 15:19 → 3 SO LND 15:47
PROVIDERS: ADMIT Obstetrics & Gynecology; ATTEND Obstetrics & Gynecology
DX: O26.892 Other specified pregnancy related conditions, second trimester (principal); R10.9 Unspecified abdominal pain; Z3A.26 26 weeks gestation of pregnancy
CPT/HCPCS: 36415; 76805; 80307; 81001; 85025; 86592; 86703; 86762; 87086; 87340; 96365; 96366; G0378; G0379; J0290; J7120

== ENCOUNTER 2020-06-24 19:54 | Emergency (ER) | payer OTHER ==
[~2020-06-24] VITALS: Ht 160 cm; Wt 45.4 kg
[2020-06-24] MEDS ORDERED: HYDROcodone/APAP 5/325MG 1 TAB TABLET PO ONE (21:45)
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
[2020-06-24] MEDS ORDERED: ORPH100T PO (22:43)
[2020-06-24] MEDS ORDERED: IBUP-1007 PO (22:43)
[2020-06-24] MEDS ORDERED: HYDR-3164 PO (22:43)
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
[2020-06-24 23:07] VITALS: BP 117/77
== END 2020-06-24 23:09 | disposition home or self-care (01) ==
LOC: ER 19:54
DX: S09.8XXA Other specified injuries of head, initial encounter (principal); R07.89 Other chest pain; M79.601 Pain in right arm; M79.602 Pain in left arm; Y04.0XXA Assault by unarmed brawl or fight, initial encounter; Y93.89 Activity, other specified; Y92.89 Other specified places as the place of occurrence of the external cause; Y99.8 Other external cause status
CPT/HCPCS: 70450; 71046; 72110; 72125; 73060; 73090; 81025; 99285